=== PATIENT | female | born 1940 | race Caucasian/White ===

== ENCOUNTER → 2017-11-28 09:44 | Outpatient (CLI) | payer MEDICARE, SELFPAY ==
--- NOTE | 2017-11-28 09:47 | BI_ITS ---
MAMMOGRAPHY - BILATERAL SCREENING REASON FOR EXAM: Female, 77 years old. Routine annual screening examination. PERTINENT HISTORY: Non-contributory. TECHNIQUE: Digital bilateral breast lisbeth (3D mammographic acquisition) in the CC and MLO projections. 2-D mediolateral oblique (MLO) and craniocaudad (CC) views of both breasts were obtained. CAD: Full Field Digital Mammography with Computer Added Detection was performed. COMPARISON: Comparison is made with prior study dated November 26, 2016 and October 11, 2015. FINDINGS: Breast Composition: The breasts are heterogeneously dense, which may obscure small masses. There now is evidence of a amorphous microcalcifications in the inferior medial aspect of the right breast. These were not present on prior examination. A biopsy is recommended for further evaluation. No other significant abnormalities are identified. BI/SCREENING MAMM (CAD), BILAT IMPRESSION: New cluster microcalcification in the inferior medial aspect of the right breast as described. Biopsy recommended. ASSESSMENT CATEGORY: BIRADS Category 4: Suspicious - Biopsy Should Be Considered. A letter regarding these results will be sent to the patient by the facility within 30 days. Approximately 10% of breast cancers are not detected by mammography. A normal mammogram should not delay biopsy of a clinically suspicious abnormality. [id number] Electronically Signed: Dionicio Haddad MD at 12:23 EDT Tel [phone], Service support ,
== END ==
PROVIDERS: Visit Provider Obstetrics & Gynecology
DX: Z12.31 Encounter for screening mammogram for malignant neoplasm of breast (principal)
CPT/HCPCS: 77063; 77067

== ENCOUNTER → 2017-12-26 09:36 | Outpatient (CLI) | payer MEDICARE, SELFPAY ==
--- NOTE | 2017-12-26 | IMM_PTH ---
PATIENT: ALEXEI SIDDIQI LOC: [facility] U#:[id number] AGE/SX: 85/F ROOM: RE12/26/[address]: Dr. Alon Tobin MD : 1940 BED: DIS: SPEC #: [id number] RECD: 12/29/17 10:48 STATUS: VERONIKA REQ #: [id number] JORGE: 12/26/17 00:[address]: Alon Tobin DEPT: IMMUNOHISTOCHEMISTRY RECD BY: José Miguel Devi ENTERED: 12/29/17 10:50 SP TYPE: IMMUNO OTHR DR: No Primary Care Phys Tissues: Right breast, NOS Procedures: CALPONIN-1 (add) CK8 (add) E-CAD (add) HER2 DAE (add) KI-67 (add) P53 (add) OR (add) P40 (add) ER (initial) PHYSICIAN & INSTITUTION [place] [address] SPECIMEN INFORMATION: Tissue Source: Right breast Clinical Info: Right central depth/inferior/medial calcifications Specimen Number: [id number] #1 CPT code: 52090, 79165 x5, 79291 x3 METHODOLOGY: Deparaffinized sections of prefer/formalin-fixed tissue or PAP/DQ stained slides are incubated with monoclonal/polyclonal antibodies/oligonucleotide probes. Localization is made via biotin free immunoperoxidase method. Appropriate controls are performed and reacted as expected. Results on target cell population are indicated in the following table: RESULTS: ANTIBODY / CLONE RESULT Block 1 P53 (DO-7) positive, >50% Ki-67 (30-9) positive, low to focal moderate CK8 (15mcgrU93) positive Calponin-1 (RO154R) positive E-Cad (ECH-6) positive P40 (BC28) positive MORPHOMETRIC ANALYSIS ER (clone 6F11) positive, 60% (moderate to weak) OR (clone 16/1E2) positive, 18% (weak) Her-2Neu (clone CB11) positive, 3+ The prognostic test for HER2 is performed on formalin-fixed paraffin embedded tissue. A 3+ (positive) staining pattern is defined as intense, homogeneous, complete, circumferential membranous staining in >10% of contiguous tumor cells. A similar weak (2+) staining pattern is interpreted as equivocal. SHRUTHI follow-up testing is recommended for all equivocal cases. Positivity/negativity for ER/OR is reported if > or < 1% of the tumor cells are immuno- reactive, respectively. The ASCO/CAP criteria is used for scoring. Reference: Journal of Clinical Oncology, 2013; 31:5787-4136 & 2010; 16:5791-0146. Duration of fixation: 58Hrs; Sample Adequate: Yes. These assays have not been validated on decalcified tissues. Results should be interpreted with caution given the likelihood of false negativity on decalcified specimens. These tests were developed and their performance characteristics determined by [facility]. They may not have been cleared or approved by the U.S. Food and Drug Administration. The FDA has determined that such clearance or approval is not necessary. INTERPRETATION: Right breast, core biopsy: Ductal carcinoma in situ, grade 3/3. AM:alexis 12/29/17
--- NOTE | 2017-12-26 | BRBX_PTH ---
PATIENT: ALEXEI SIDDIQI LOC: [facility] U#:[id number] AGE/SX: 85/F ROOM: RE12/26/[address]: Dr. Alno Tobin MD : 1940 BED: DIS: SPEC #: [id number] RECD: 12/26/17 11:29 STATUS: VERONIKA LULU #: [id number] JORGE: 12/26/17 00:[address]: Alon Tobin DEPT: SURGICAL PATHOLOGY RECD BY: Romaine Burger ENTERED: 12/26/17 11:29 SP TYPE: BREAST BX OTHR DR: No Primary Care Phys Tissues: Right breast, NOS Procedures: Surgery Specimen Level IV HEADER OPERATION: Right breast stereotactic needle core biopsy PRE-OP DIAGNOSIS: Right central depth / inferior / medial calcifications TISSUE SUBMITTED: Right breast ISCHEMIC TIME: 2 minutes FIXATION TIME: 58 hours MICROSCOPIC DIAGNOSIS Right breast, stereotactic needle core biopsy: Ductal carcinoma in situ, 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 AM:alexis 12/29/17 COMMENT ER/SC/Fzm1ion studies are being performed on sections of tumor and the results from this study will be reported separately ([id number]). Case has been reviewed in consultation with Dr. Momin who concurs with the above diagnosis. EULALIA:BRONSON MICROSCOPIC DESCRIPTION Slides are reviewed. GROSS DESCRIPTION Received in fixative is one container labeled with the patient's name and designated right breast. The specimen consists of multiple elongated fragments of gregg-yellow fibroadipose tissue that in aggregate measure 5 x 3 x 0.6 cm. The entire specimen is submitted in four cassettes. / BRONSON:alexis 12/26/17 TC:0 CPT: 12039
--- NOTE | 2017-12-26 13:52 | PCM.OPRPT ---
Problem List (1) Mammographic microcalcification found on diagnostic imaging of breast Status: Acute Report of Operation Date of Procedure: 12/26/17 Pre-Operative Diagnosis: r92.0 mammographic microcalcifications of right breast Post-Operative Diagnosis: Same Surgery/Procedure Performed:: [id number] right stereotactic breast biopsy Type of Anesthesia:: Local Description of Procedure: Patient was brought into the mammography unit placed in the prone position on the fissure table. The right breast was brought down through the opening. A medial to lateral view was obtained. Identify the microcalcifications ?15? views were obtained. Targeted on the microcalcifications. I prepped the breast with Betadine. I injected 1% lidocaine plain. I made a skin cisco. The needle in the prefire position took 2 more stereo views. The area was adequately targeted. I injected more local. I fired the needle took 360? circumferential biopsies. I x-rayed my specimen. Microcalcifications were present. I backed the needle off 7 mm. A small Gelfoam titanium clip was placed. I remove the needle. X-rayed the breast. Small titanium clip was identified. Patient was taken out of the machine Steri-Strips applied sterile dressings were applied standard mammograms were obtained and the patient tolerated the procedure well. - Admit VTE Documentation VTE Present on Admission: No VTE Mechan Device Prophylaxis: None VTE Pharm Prophylaxis ordered?: No Reason prophylaxis not ordered:: Treatment Not Indicated
== END ==
PROVIDERS: Visit Provider Surgery
DX: C50.111 Malignant neoplasm of central portion of right female breast (principal); Z79.82 Long term (current) use of aspirin; Z79.899 Other long term (current) drug therapy
CPT/HCPCS: 19081; 88305; 88341; 88342; J7050; A4648

== ENCOUNTER 2018-01-08 08:06 | Day surgery (SDC) | payer MEDICARE, SELFPAY ==
--- NOTE | 2018-01-08 | BRBX_PTH ---
PATIENT: ALEXEI SIDDIQI LOC: [facility] [place] U#:[id number] AGE/SX: 77/F ROOM: RE01/08/[address]: Dr. Alon Tobin MD : 1940 BED: DIS: 01/08/2018 SPEC #: [id number] RECD: 01/08/18 10:24 STATUS: VERONIKA REEnzo #: [id number] JORGE: 01/08/18 00:[address]: Alon Tobin DEPT: SURGICAL PATHOLOGY RECD BY: Jane Cano ENTERED: 01/08/18 11:59 SP TYPE: BREAST BX OTHR DR: Dr. Bryanna Felix MD Tissues: A - Right breast, NOS B - Axillary lymph node, NOS Procedures: Frozen Section (charge) Surgery Specimen Level IV Frozen (no charge) HEADER OPERATION: Breast lumpectomy, sentinel node, NL PRE-OP DIAGNOSIS: Ductal carcinoma in situ right breast TISSUE SUBMITTED: A ? Lumpectomy right breast with wire, wire comes out anterior toward skin, single long ? medial, double long ? lateral, double short ? posterior, sent to radiology first at 1017, then pathology, B ? [place] lymph node right breast sent at 1021 FROZEN SECTION DIAGNOSIS B. [place] lymph nodes, right, biopsy: Two out of two lymph nodes, negative for metastatic carcinoma. SJ:alexis 01/08/18 MICROSCOPIC DIAGNOSIS A. Right breast, lumpectomy with needle localization: Invasive ductal carcinoma (two foci). Ductal carcinoma in situ. See cancer summary below. B. [place] lymph nodes, right, biopsy: Two out of two lymph nodes, negative for metastatic carcinoma. INVASIVE BREAST CANCER SUMMARY: (Including specimen A and B) Specimen ? partial breast Procedure ? excision with wire-guided localization Lymph node sampling ? sentinel lymph nodes Specimen integrity ? single intact specimen Specimen size ? 6 x 4 x 3 cm Specimen laterality - right Tumor site ? central/inferior/medial as per clinical information Tumor size - not specified Tumor focality ? two foci of invasive carcinoma Size of individual foci ? 0.5 x 0.4 cm, each Macroscopic and Microscopic extent of tumor: Skin ? invasive carcinoma does not invade into the dermis or epidermis. Nipple ? not applicable Skeletal muscle ? no skeletal muscle present Ductal carcinoma in situ (DCIS) ? present, adjacent to and away from the invasive carcinoma. Extensive intraductal component (EIC) ? present Estimated size (extent) of DCIS ? DCIS comprise about 60% of the total tumor volume Number of blocks with DCIS - 7 Number of blocks examined - 12 Architectural patterns ? comedo and solid Nuclear grade ? 3 (high) Necrosis ? present, central (expansive ?comedo? necrosis) Lobular carcinoma in situ (LCIS) ? not identified Histologic type of invasive carcinoma ? invasive ductal carcinoma (no special type) Histologic Grade (Calire grade): Glandular/tubular differentiation - score 2 Nuclear pleomorphism - score 2 Mitotic count ? score 1 Overall grade - 1 (score of 5) Margins - Margins uninvolved by invasive carcinoma. One of the invasive carcinoma focus is 1.7 cm away from the anterior margin (block A9). Second focus of invasive carcinoma is 1 cm away from the closest anterior margin (block A11). Margins are uninvolved by DCIS. The DCIS is 0.2 cm away from the closest inferior margin. Treatment effect: Response to presurgical (neoadjuvant) therapy - no known presurgical therapy. Lymph-Vascular invasion ? not identified Dermal lymph-vascular invasion - not identified Lymph nodes: Number of sentinel lymph nodes examined - 2 Total number of lymph nodes examined (sentinel and nonsentinel) - 2 Number of lymph nodes with macrometastases, micrometastases and isolated tumor cells - 0 Method of evaluation of sentinel lymph nodes - H & E, multiple levels and IHC. Distance metastasis ? not applicable Additional pathologic findings ? changes consistent with previous biopsy site. - Fibrocystic changes, adenosis and intraductal hyperplasia without atypia. Ancillary studies ? Immunohistochemistry, [id number]. ER ? positive (>95%, moderate) [place] ? positive (12%, weak) Her2 cindy ? positive (3+) Microcalcifications ? present in ductal carcinoma in situ Clinical history - Please make reference to previous specimen ([id number]) right breast, stereotactic needle core biopsy with diagnosis of ductal carcinoma in situ. PATHOLOGIC STAGE: pT1a(m) pN0(sn) Mx The above summary is in compliance with [employer] [place] [employer] (CAP) Cancer Protocols Checklist and [place] Joint Committee on Cancer (AJCC), Staging Manual, 8th Ed. SJ:alexis 01/20/18 COMMENT A. Immunohistochemistry ([id number]) supports the above diagnosis. The foci of invasive carcinoma are noted away from the previous biopsy site. B. The lymph nodes are negative for metastatic carcinoma on multiple H & E levels and immunohisto-chemical stains for cytokeratins ([id number]). Discussed with Dr. Barcenas 01/27/18 at 11:[address] Momin. Case has been reviewed in consultation with Dr. Larsen who concurs with the above diagnosis. IDC:AM MICROSCOPIC DESCRIPTION Slides are reviewed. GROSS DESCRIPTION A - Received fresh for intraoperative consultation labeled with the patient's name and designated lumpectomy right breast with wire. The specimen consists of a piece of fibroadipose tissue with needle localization measuring 6 x 4 x 3 cm. A piece of skin is noted anteriorly measuring 0.7 x 0.2 cm. The specimen is oriented as follows: single long ? medial, double long ? lateral, double short ? posterior , wire comes out anterior towards the skin. The specimen is also oriented by the surgeon in person. The specimen is inked as follows: anterior ? yellow, posterior ? black, superior ? blue, inferior ? green, medial ? red and lateral ? orange. Serial sections reveal the biopsy cavity measuring 1 x 1 x 0.7 cm and this biopsy cavity is 0.5 cm away from the closest anterior margin. This information is conveyed to the surgeon in person. Mixing Technician sections are submitted in 12 cassettes as follows: 1 ? perpendicular medial and lateral margins, 2 ? perpendicular superior, inferior and posterior margins, 3-8 ? biopsy cavity with surrounding tissue (cassette 3 contains the skin and closest anterior margin and cassette 4 also contains the closest anterior margin). The skin piece is bisected and entirely submitted. 9-12 ? jewelry sales representative sections from the other areas. Sections will be submitted after infusion cycle. B - Received fresh for frozen section diagnosis labeled with the patient's name is a specimen designated sentinel lymph node right breast. The specimen consists of a piece of adipose tissue containing contains measuring 2 x 1.2 x 1 cm. Two lymph nodes are identified measuring 0.3 cm and 1 cm in greatest dimension. The smaller lymph node is inked black. Both lymph nodes are submitted for frozen section diagnosis in one cassette. Sections will be submitted after infusion cycle. / SJ:rg 01/08/18 TC:0 CPT: 57935, 78439, 42460 x2
--- NOTE | 2018-01-08 | IMM_PTH ---
PATIENT: ALEXEI SIDDIQI LOC: [facility] [place] U#:[id number] AGE/SX: 77/F ROOM: RE01/08/[address]: Dr. Alon Tobin MD : 1940 BED: DIS: 01/08/2018 SPEC #: [id number] RECD: 01/12/18 10:14 STATUS: VERONIKA REQ #: [id number] JORGE: 01/08/18 00:[address]: Alon Tobin DEPT: IMMUNOHISTOCHEMISTRY RECD BY: Jane Cano ENTERED: 01/15/18 10:18 SP TYPE: IMMUNO OTHR DR: Dr. Bryanna Felix MD Tissues: A - Right breast, NOS Procedures: CALPONIN-1 (add) CK5-6 (add) CK7 (add) CK8 (add) E-CAD (add) HER2 DAE (add) KI-67 (add) P53 (add) FL (add) Pankeratin (initial) P40 (add) ER (initial) PHYSICIAN & [address] [address] SPECIMEN INFORMATION: Tissue Source: A ? Right breast lumpectomy, B ? Right sentinel lymph node Clinical Info: DCIS right breast Specimen Number: [id number] A2, A9, A11, B1 CPT code: 17230 x2, 00199 x13, 96572 x3 METHODOLOGY: Deparaffinized sections of prefer/formalin-fixed tissue or PAP/DQ stained slides are incubated with monoclonal/polyclonal antibodies/oligonucleotide probes. Localization is made via biotin free immunoperoxidase method. Appropriate controls are performed and reacted as expected. Results on target cell population are indicated in the following table: RESULTS: ANTIBODY / CLONE RESULT Block A2 E-Cad (ECH-6) positive P40 (BC28) positive Calponin-1 (LF672O) positive Block A9 E-Cad (ECH-6) positive P40 (BC28) negative Calponin-1 (CE060H) negative Block A11 E-Cad (ECH-6) positive CK8 (40hfufB57) positive CK5-6 (D5 & 1684) negative Ki-67 (30-9) positive, low P53 (DO-7) positive P40 (BC28) negative Calponin-1 (VO310M) negative MORPHOMETRIC ANALYSIS ER (clone 6F11) >95%, moderate FL (clone 16/1E2) 12%, weak Her-2Neu (clone CB11) 3+ Block B1 AE1-3 (AE1/AE3/PCK26) negative CK7 (OV-TL12/30) negative The prognostic test for HER2 is performed on formalin-fixed paraffin embedded tissue. A 3+ (positive) staining pattern is defined as intense, homogeneous, complete, circumferential membranous staining in >10% of contiguous tumor cells. A similar weak (2+) staining pattern is interpreted as equivocal. SHRUTHI follow-up testing is recommended for all equivocal cases. Positivity/negativity for ER/FL is reported if > or < 1% of the tumor cells are immuno- reactive, respectively. The ASCO/CAP criteria is used for scoring. Reference: Journal of Clinical Oncology, 2013; 31:5995-2315 & 2010; 16:8118-0972. Duration of fixation: __ Hrs; Sample Adequate: Yes. These assays have not been validated on decalcified tissues. Results should be interpreted with caution given the likelihood of false negativity on decalcified specimens. These tests were developed and their performance characteristics determined by [facility]. They may not have been cleared or approved by the U.S. Food and Drug Administration. The FDA has determined that such clearance or approval is not necessary. INTERPRETATION: A. Right breast, lumpectomy: Invasive ductal carcinoma (block A9 and A11). Ductal carcinoma in situ (blockA2) Positive for estrogen receptors (favorable prognostic indicator). Positive for progesterone receptors (favorable prognostic indicator). Positive for overexpression of OZI3ula. B. Right sentinel lymph node, biopsy: Two out of two lymph nodes, negative for metastatic carcinoma. SJ:alexis 01/20/18
--- NOTE | 2018-01-08 | BRBX_PTH ---
PATIENT: ALEXEI SIDDIQI LOC: [facility] [place] U#:[id number] AGE/SX: 77/F ROOM: RE01/08/[address]: Dr. Alon Tobin MD : 1940 BED: DIS: 01/08/2018 SPEC #: [id number] RECD: 01/08/18 10:24 STATUS: VERONIKA REEnzo #: [id number] JORGE: 01/08/18 00:[address]: Alon Tobin DEPT: SURGICAL PATHOLOGY RECD BY: Jane Cano ENTERED: 01/08/18 11:59 SP TYPE: BREAST BX OTHR DR: Dr. Bryanna Felix MD Tissues: A - Right breast, NOS B - Axillary lymph node, NOS Procedures: Frozen Section (charge) Surgery Specimen Level IV Frozen (no charge) HEADER OPERATION: Breast lumpectomy, sentinel node, NL PRE-OP DIAGNOSIS: Ductal carcinoma in situ right breast TISSUE SUBMITTED: A ? Lumpectomy right breast with wire, wire comes out anterior toward skin, single long ? medial, double long ? lateral, double short ? posterior, sent to radiology first at 1017, then pathology, B ? [place] lymph node right breast sent at 1021 FROZEN SECTION DIAGNOSIS B. [place] lymph nodes, right, biopsy: Two out of two lymph nodes, negative for metastatic carcinoma. SJ:alexis 01/08/18 MICROSCOPIC DIAGNOSIS A. Right breast, lumpectomy with needle localization: Invasive ductal carcinoma (two foci). Ductal carcinoma in situ. See cancer summary below. B. [place] lymph nodes, right, biopsy: Two out of two lymph nodes, negative for metastatic carcinoma. INVASIVE BREAST CANCER SUMMARY: (Including specimen A and B) Specimen ? partial breast Procedure ? excision with wire-guided localization Lymph node sampling ? sentinel lymph nodes Specimen integrity ? single intact specimen Specimen size ? 6 x 4 x 3 cm Specimen laterality - right Tumor site ? central/inferior/medial as per clinical information Tumor size - not specified Tumor focality ? two foci of invasive carcinoma Size of individual foci ? 0.5 x 4 cm each Macroscopic and Microscopic extent of tumor: Skin ? invasive carcinoma does not invade into the dermis or epidermis. Nipple ? not applicable Skeletal muscle ? no skeletal muscle present Ductal carcinoma in situ (DCIS) ? present Extensive intraductal component (EIC) ? present, adjacent to and away from the invasive carcinoma. Estimated size (extent) of DCIS ? DCIS comprise about 60% of the total tumor volume Number of blocks with DCIS - 7 Number of blocks examined - 12 Architectural patterns ? comedo and solid Nuclear grade ? 3 (high) Necrosis ? present, central (expansive ?comedo? necrosis) Lobular carcinoma in situ (LCIS) ? not identified Histologic type of invasive carcinoma ? invasive ductal carcinoma (no special type) Histologic Grade (Etna grade): Glandular/tubular differentiation - score 2 Nuclear pleomorphism - score 2 Mitotic count ? score 1 Overall grade - 1 (score of 5) Margins - Margins uninvolved by invasive carcinoma. One of the invasive carcinoma focus is 1.7 cm away from the anterior margin (block A9). Second focus of invasive carcinoma is 1 cm away from the closest anterior margin (block A11). Margins are uninvolved by DCIS. The DCIS is 0.2 cm away from the closest inferior margin. Treatment effect: Response to presurgical (neoadjuvant) therapy - no known presurgical therapy. Lymph-Vascular invasion ? not identified Dermal lymph-vascular invasion - not identified Lymph nodes: Number of sentinel lymph nodes examined - 2 Total number of lymph nodes examined (sentinel and nonsentinel) - 2 Number of lymph nodes with macrometastases, micrometastases and isolated tumor cells - 0 Method of evaluation of sentinel lymph nodes - H & E, multiple levels and IHC. Distance metastasis ? not applicable Additional pathologic findings ? changes consistent with previous biopsy site. - Fibrocystic changes, adenosis and intraductal hyperplasia without atypia. Ancillary studies ? Immunohistochemistry, [id number]. ER ? positive (>95%, moderate) [place] ? positive (12%, weak) Her2 cindy ? positive (3+) Microcalcifications ? present in ductal carcinoma in situ Clinical history - Please make reference to previous specimen ([id number]) right breast, stereotactic needle core biopsy with diagnosis of ductal carcinoma in situ. PATHOLOGIC STAGE: pT1a(m) pN0(sn) Mx The above summary is in compliance with [employer] [place] [employer] (CAP) Cancer Protocols Checklist and [place] [employer] Committee on Cancer (AJCC), Staging Manual, 8th Ed. SJ:alexis 01/20/18 COMMENT A. Immunohistochemistry ([id number]) supports the above diagnosis. The foci of invasive carcinoma are noted away from the previous biopsy site. B. The lymph nodes are negative for metastatic carcinoma on multiple H & E levels and immunohisto-chemical stains for cytokeratins ([id number]). Case has been reviewed in consultation with Dr. Larsen who concurs with the above diagnosis. IDC:AM MICROSCOPIC DESCRIPTION Slides are reviewed. GROSS DESCRIPTION A - Received fresh for intraoperative consultation labeled with the patient's name and designated lumpectomy right breast with wire. The specimen consists of a piece of fibroadipose tissue with needle localization measuring 6 x 4 x 3 cm. A piece of skin is noted anteriorly measuring 0.7 x 0.2 cm. The specimen is oriented as follows: single long ? medial, double long ? lateral, double short ? posterior , wire comes out anterior towards the skin. The specimen is also oriented by the surgeon in person. The specimen is inked as follows: anterior ? yellow, posterior ? black, superior ? blue, inferior ? green, medial ? red and lateral ? orange. Serial sections reveal the biopsy cavity measuring 1 x 1 x 0.7 cm and this biopsy cavity is 0.5 cm away from the closest anterior margin. This information is conveyed to the surgeon in person. Component Overhaul Operator sections are submitted in 12 cassettes as follows: 1 ? perpendicular medial and lateral margins, 2 ? perpendicular superior, inferior and posterior margins, 3-8 ? biopsy cavity with surrounding tissue (cassette 3 contains the skin and closest anterior margin and cassette 4 also contains the closest anterior margin). The skin piece is bisected and entirely submitted. 9-12 ? representative phlebotomy services sections from the other areas. Sections will be submitted after infusion cycle. B - Received fresh for frozen section diagnosis labeled with the patient's name is a specimen designated sentinel lymph node right breast. The specimen consists of a piece of adipose tissue containing contains measuring 2 x 1.2 x 1 cm. Two lymph nodes are identified measuring 0.3 cm and 1 cm in greatest dimension. The smaller lymph node is inked black. Both lymph nodes are submitted for frozen section diagnosis in one cassette. Sections will be submitted after infusion cycle. / SJ:rg 01/08/18 TC:0 CPT: 35259, 43648, 53804 x2
--- NOTE | 2018-01-08 07:40 | BI_ITS ---
SURGICAL BREAST SPECIMEN RADIOGRAPH CLINICAL: Document presence of mass in biopsy specimen. FINDINGS: Specimen shows presence of mass. Pathology is pending and an addendum to the biopsy report will be performed after the final pathologic diagnosis is rendered. Electronically Signed: Dionicio Haddad MD at 11:27 EDT Tel [phone], Service support , BI/Breast Biopsy Specimen
[2018-01-08 08:33] VITALS: BP 170/81; PULSE 78; RESP 16; TEMP 36.6; O2SAT 99; BMI 33.6
[2018-01-08] MEDS: Bupivacaine Mpf 0.5% 30 ML VIAL (09:01)
[2018-01-08] MEDS: Cefazolin 2 GM in 0.9% Normal Saline 100 ML IV (09:39)
--- NOTE | 2018-01-08 09:49 | OP.PCM_ITS ---
Problem List (1) Ductal carcinoma in situ (DCIS) of right breast Status: Acute Report of Operation Date of Procedure: 01/08/18 Pre-Operative Diagnosis: d05.11 ductal carcinoma in situ right breast Post-Operative Diagnosis: Same Surgery/Procedure Performed:: 1. Wire localization of ductal carcinoma in situ right breast. 2. Injection of 5 cc of Lymphazurin Blue. 3. right breast lumpectomy. 4. Right sentinel lymph node biopsy Type of Anesthesia:: General Anesthesiologist: Stoney Kovacs Description of Procedure: Patient was brought into the mammography unit. Placed in the prone position on the fissure table. The right breast was brought down through the opening. A medial to lateral view was obtained. Marking clip was identified. ?15? views were obtained. The breast was sterilely prepped and draped in usual fashion. I injected 1% lidocaine plain. I targeted on the clip in place the Kopan's wire approximately 1-1/2 cm past the clip. 2 more stereo views were obtained and the patient was transferred to the operating room. In the operating room under excellent general endotracheal intubation, I injected 5 cc of Lymphazurin blue around the nipple areolar complex. The right breast was sterilely prepped and draped. Elliptical incision was made around the previous biopsy site incision was carried medial and laterally I use electrocautery to get all the way around the lesion. I sent it to stereo and x- ray confirmed the wire was going into the lesion and the clip was in place. It was sent to pathology where inspection showed that I was clearly around the biopsy cavity and the closest margin was 5 mm anteriorly towards the skin. I made an incision in the axilla I dissected down going through the clavipectoral fascia and I identified a blue lymph node almost immediately. I removed it with the aid of the harmonic dissector sent to pathology for frozen section which did indeed confirm lymph node tissue and no obvious metastatic disease. Incisions were closed with deep dermal stitches of 3-0 Vicryl in a running 4-0 Monocryl. Dermabond was applied sterile dressings were applied Toñito wrap was applied and the patient tolerated the procedure well. - Admit VTE Documentation VTE Present on Admission: No VTE Mechan Device Prophylaxis: SCD's VTE Pharm Prophylaxis ordered?: No Reason prophylaxis not ordered:: Treatment Not Indicated
[2018-01-08] MEDS: Isosulfan Blue 1% 5 ML Vial (10:02)
[2018-01-08 10:57] VITALS: BP 165/87; PULSE 62; RESP 16; TEMP 36.3; O2SAT 100
[2018-01-08 11:15] VITALS: BP 165/87; BP 166/81; PULSE 59; PULSE 61; RESP 16; O2SAT 99
[2018-01-08 11:30] VITALS: BP 156/79; BP 165/87; PULSE 59; RESP 16; O2SAT 99
[2018-01-08 11:43] VITALS: BP 160/81; BP 165/87; PULSE 56; RESP 16; TEMP 36.4; O2SAT 98
--- NOTE | 2018-01-08 12:20 | DCINST_ITS ---
Discharge Diet: No Restrictions Discharge Activity: May Not Drive - for 2-3 days or while taking narcotic pain meds. May shower in (days): 1 Lifting Restrictions: 10 pounds for 1 week. Call your doctor if your incision/area has: Continuous Slow Oozing, Sudden Increased Bleeding Call your doctor if you observe: Fever of 101 or Higher Suture Line Care: Avoid Pulling/Pushing, Avoid Pinching/Bending Remove Dressing in (days):: 1 - Remove bulky dressing tomorrow. May leave any opsite dressing for 3-4 days. Keep dressing in place until your follow-up appointment. Additional Dressing/Incision Instructions:: Remove bulky dressing tomorrow. May leave any opsite dressing for 3-4 days. Keep dressing in place until your follow-up appointment. Allergies/Adverse Reactions: Allergies No Known Allergies Allergy (Verified 12/05/17 09:14) Medications to take at Discharge Aspirin [Aspirin EC] 81 mg PO DAILY 11/13/16 Cholecalciferol (VIT D3) [Vitamin D] 1,000 unit PO DAILY 11/13/16 Levothyroxine [Synthroid] 50 mcg PO DAILY 11/13/16 [place]-3 Fatty Acids [Fish Oil] 500 mg PO DAILY 11/13/16 Raloxifene HCl [Evista] 60 mg PO DAILY 11/13/16 celecoxib 200 mg capsule 200 mg PO QDAY 12/05/17 estradiol 0.5 mg tablet 0.5 mg PO QDAY 12/05/17 loratadine 10 mg tablet 10 mg PO PRN PRN 12/05/17 Docusate Sodium [Colace] 100 mg PO DAILY 01/02/18 Oxycodone HCl/Acetaminophen [Percocet 5/325] 1 - 2 tab PO Q4H PRN PRN 4 Days # 30 tab 01/08/18 The following prescriptions were given: Oxycodone HCl/Acetaminophen [Percocet 5/325] 1 - 2 tab PO Q4H PRN PRN 4 Days # 30 tab PRN Reason: Pain Primary Care Physician: Bryanna Felix MD [Primary Care Provider] -
[2018-01-08 12:25] VITALS: BP 165/87
== END 2018-01-08 12:59 | disposition home or self-care (01) ==
LOC: SDC 08:08 → AC 08:09
PROVIDERS: Family Provider Internal Medicine; PCP Internal Medicine; Visit Provider Surgery
PROC: (CPT 19301; principal; 2018-01-08 09:15)
DX: D05.11 Intraductal carcinoma in situ of right breast (principal); E07.9 Disorder of thyroid, unspecified; M19.90 Unspecified osteoarthritis, unspecified site; Z79.82 Long term (current) use of aspirin; Z79.899 Other long term (current) drug therapy; Z78.0 Asymptomatic menopausal state; Z90.710 Acquired absence of both cervix and uterus
CPT/HCPCS: 00400; 19301; 38525; 38900; 19281; 76098; 88305; 88331; 88341; 88342; J7120; Q9968

== ENCOUNTER → 2018-02-05 13:40 | Outpatient (CLI) | payer MEDICARE, SELFPAY ==
--- NOTE | 2018-02-05 14:03 | CT_ITS ---
STUDY: CT CHEST/THORAX WITH CONTRAST REASON FOR EXAM: Female, 78 years old. Right breast cancer. Postlumpectomy. RADIATION DOSAGE (If Supplied By Facility): CTDIvol = ( 14.14 ) mGy, DLP = ( 381.43 ) mGycm TECHNIQUE: Transaxial imaging was performed following intravenous administration of 100 ml of Isovue 300 contrast material. Multiplanar coronal and sagittal images were reformatted. Individualized dose optimization techniques were used for this CT. COMPARISON: None. FINDINGS: There is minor subsegmental crowding in the posterior medial right lower lobe. 3.5 mm calcified granuloma seen in the posterolateral left upper lobe at the mid chest. The lungs are otherwise clear and expanded. There is no demonstrated pleural abnormality. Normal heart and pericardium. There are calcified left hilar lymph nodes, as well as a few nodes with central calcifications in the aorticopulmonary window. There is a nonspecific 1.5 x 0.9 x 0.75 cm precarinal lymph node. Normal enhanced pulmonary arteries. Normal aorta arch and descending thoracic aorta. There are multi-level degenerative changes of the thoracic spine. Incidental note of grade 1 spondylolisthesis of T2 on T3, as well as well-corticated, focal invagination of the superior T3 vertebral endplate, consistent with a benign Schmorl's node. There is a moderately defined 1.7 x 1.6 x 1.6 cm side of lower density and mild trabecular thickening in the right posterior aspect of T11. There is a crescent-shaped 5.7 x 2.7 x 1.0 cm fluid density deep to a small site of cutaneous thickening and indentation of the medial aspect of the right breast, consistent with the prior lumpectomy site and small seroma. There are benign-appearing, fatty replaced lymph nodes in the bilateral axillae. There is osseous fusion across the sternomanubrial articulation. There is no demonstrated abnormality of the visualized upper abdomen. CT/Chest WITH Contrast IMPRESSION: 1. Post lumpectomy changes in the medial aspect of the right breast. 2. Findings of old left calcified granulomatous disease. 3. Extensive degenerative changes of the spine, including grade 1 spondylolisthesis of T2 on T3. 4. 1.7 cm low-density lesion suggesting hemangioma in the right posterior aspect of T11. Other pathology difficult to exclude, and one might consider correlation with bone scan or MRI. Electronically Signed: Shorty Swenson MD at 15:16 EDT , Service support ,
[2018-02-05 14:13] LABS: Absolute Lymphocyte Count 1.53 X10^3/ul (0.83-4.51); Absolute Neutrophil Count 4.4 X10^3/uL (2.0-7.7); Basophil# 0.02 X10^3/uL; Basophil% 0.3 % (0-1); Eosinophil# 0.24 X10^3/uL; Eosinophils% 3.7 % (0-5); Hematocrit 41.3 % (37-47); Hemoglobin 13.4 g/dl (12.0-15.0); Lymphocyte # 1.53 X10^3/ul (4.0); Lymphocyte % 23.3 % (19-41); Mean Corp Hgb Conc 32.4 g/gl (32-36); Mean Corpuscular Hgb 30.7 pg (27.0-32.0); Mean Corpuscular Volume 94.5 fL (81-99); Mean Platelet Vol. 10.1 fl (6.2-12.0); Monocyte# 0.43 X10^3/uL; Monocyte% 6.5 % (0-10); Neutrophil # 4.35 X10^3/uL (2.7-7.7); Neutrophil % 66.2 % (47-70); Platelet Count 255 K/mm3 (150-450); RBC Distribution Width CV 13.8 % (11.6-14.6); RBC Distribution Width SD 47.6 fl (35.1-43.9); Red Blood Count 4.37 M/mm3 (4.2-5.4); White Blood Count 6.6 K/mm3 (4.4-11.0)
[2018-02-05 14:15] LABS: POSITIVE COUNT NO; POSITIVE DIFFERENTIAL NO; POSITIVE MORPHOLOGY NO
[2018-02-05 14:21] LABS: AST(SGOT) 19 U/L (15-37); Alanine Aminotransfer ALT/SGPT 23 U/L (13-56); Albumin, Serum 3.5 g/dL (3.2-5.0); Alkaline Phosphatase 100 U/L (45-117); Anion Gap 7 (5-15); BUN 20 mg/dL (7-18); BUN/Creat Ratio 19.2 RATIO (10-20); Calcium,Total 9.8 mg/dL (8.5-10.1); Chloride 107 mmol/L (98-107); Creatinine, Serum 1.04 mg/dL (0.55-1.02); EST Glomerular Filtration Rate 55 mL/min (>60); Est Glom Filt Rate - Afr Amer 66 mL/min (>60); Globulin 3.6 g/dL (2.2-4.2); Glucose 89 mg/dL (74-106); Potassium 4.4 mmol/L (3.5-5.1); Protein, Total 7.1 g/dL (6.4-8.2); Sodium Level 140 mmol/L (136-145)
== END ==
PROVIDERS: Family Provider Internal Medicine; PCP Internal Medicine; Visit Provider Internal Medicine Medical Oncology
DX: D05.11 Intraductal carcinoma in situ of right breast (principal)
CPT/HCPCS: 36415; 71260; 80053; 85025; Q9967

== ENCOUNTER → 2018-06-25 13:54 | Outpatient (CLI) | payer MEDICARE, SELFPAY ==
[2018-02-19 10:10] VITALS: BMI 34.1
[2018-06-10 11:13] VITALS: BMI 34.0
--- NOTE | 2018-06-25 13:57 | US_ITS ---
STUDY: ULTRASOUND BREAST - RIGHT REASON FOR EXAM: Female, 78 years old. Six-month follow-up for right lumpectomy. TECHNIQUE: Axial and longitudinal images of the RIGHT breast were performed with a high resolution ultrasound transducer. COMPARISON: Comparison is made with prior mammogram done earlier today. FINDINGS: RIGHT Breast: At the lumpectomy site, there is a 2.3 cm x 3.1 cm x 0.3 cm fluid collection most likely postoperative in nature. Postsurgical changes are also seen at the lumpectomy site. US/Breast Limited Unilateral IMPRESSION: Findings in keeping with prior lumpectomy and small residual fluid collection. ASSESSMENT CATEGORY: BIRADS Category 2: Benign. A letter regarding these results will be sent to the patient by the facility within 30 days. Electronically Signed: Dionicio Haddad MD at 15:49 EST Tel [phone], Service support ,
--- NOTE | 2018-06-25 14:02 | BI_ITS ---
MAMMOGRAPHY - UNILATERAL DIAGNOSTIC: RIGHT BREAST REASON FOR EXAM: Female, 78 years old. 6 month follow-up examination for post right lumpectomy. PERTINENT HISTORY: Personal history of breast cancer. TECHNIQUE: Digital unilateral breast lisbeth (3D mammographic acquisition) in the CC and MLO projections. 2-D mediolateral oblique (MLO) and craniocaudad (CC) views of both breasts were obtained. CAD: Full Field Digital Mammography with Computer Added Detection was performed. COMPARISON: Comparison is made with prior study dated November 28, 2017 and November 26, 2016. FINDINGS: Breast Composition: The breasts are heterogeneously dense, which may obscure small masses. Since prior study, the patient underwent lumpectomy in the inferior medial portion of the right breast. The previously seen microcalcifications are not present at this time. There is evidence of postsurgical changes and deformity. No new abnormality is seen. No other significant abnormalities are identified. BI/DIAG MAMM W/CAD, UNILAT IMPRESSION: Status post right lumpectomy in the inferior medial portion of the right breast with resultant postoperative changes. No suspicious abnormality is seen. One year follow-up mammogram recommended. (A) ASSESSMENT CATEGORY: BIRADS Category 2: Benign. A letter regarding these results will be sent to the patient by the facility within 30 days. Approximately 10% of breast cancers are not detected by mammography. A normal mammogram should not delay biopsy of a clinically suspicious abnormality. Electronically Signed: Dionicio Haddad MD at 15:26 EST Tel [phone], Service support ,
== END ==
PROVIDERS: Family Provider Internal Medicine; PCP Internal Medicine; Referring Provider Surgery; Visit Provider Surgery
DX: C50.911 Malignant neoplasm of unspecified site of right female breast (principal)
CPT/HCPCS: 76642; 77061; 77065; G0279

== ENCOUNTER → 2018-10-01 14:34 | Outpatient (CLI) | payer MEDICARE, SELFPAY ==
[2018-09-23 11:51] VITALS: BMI 34.1
[2018-10-01 14:21] VITALS: BMI 34.0
--- NOTE | 2018-10-01 14:35 | RAD_ITS ---
STUDY: X-RAY - RIGHT KNEE REASON FOR EXAM: Female, 78 years old. Pain TECHNIQUE: Four view(s) of the knee were obtained. COMPARISON: None. FINDINGS: There is minimal spurring on the distal femur. There is minimal spurring on the tibial plateau. There is a small benign exostosis off the lateral distal femoral shaft. There is marked narrowing of the medial femorotibial compartment. Normal lateral femorotibial compartment. There is mild degenerative arthrosis of the patellofemoral articulation. There is moderate fullness above the patella. The soft tissue structures are unremarkable. RAD/Knee 4 or More Views IMPRESSION: There are marked degenerative changes in the medial compartment with subchondral cyst formation or osteochondral defects in the medial femoral condyle. There is a moderate joint effusion. Electronically Signed: Kelly Chavez MD at 10:54 EST , Service support ,
--- NOTE | 2018-10-01 14:35 | RAD_ITS ---
STUDY: X-RAY - LEFT KNEE REASON FOR EXAM: Female, 78 years old. Pain TECHNIQUE: Four view(s) of the knee were obtained. COMPARISON: None. FINDINGS: There is minimal spurring on the distal femur. There is minimal spurring on the tibial plateau. There is marked narrowing of the medial femorotibial compartment. There is mild narrowing of the lateral femorotibial compartment. There is chondrocalcinosis in the lateral femorotibial compartment. There is mild degenerative arthrosis of the patellofemoral articulation. There is no fullness above the patella. The soft tissue structures are unremarkable. RAD/Knee 4 or More Views IMPRESSION: There are marked degenerative changes in the medial compartment of the left knee. There are mild degenerative changes in the lateral compartment. No evidence of joint effusion. Electronically Signed: Kelly Chavez MD at 10:47 EST , Service support ,
== END ==
PROVIDERS: Family Provider Internal Medicine; PCP Internal Medicine; Referring Provider Orthopaedic Surgery; Visit Provider Orthopaedic Surgery
DX: M25.562 Pain in left knee (principal); M25.561 Pain in right knee
CPT/HCPCS: 73564

== ENCOUNTER 2018-12-01 05:33 | Observation (INO) | payer MEDICARE, SELFPAY ==
[2018-09-23 11:51] VITALS: BMI 34.1
[2018-10-23 12:01] VITALS: BMI 34.0
[2018-11-20 13:30] VITALS: BP 139/73; PULSE 73; RESP 17; TEMP 36.6; O2SAT 98; BMI 33.0
--- NOTE | 2018-11-20 13:50 | SDCEKG_ITS ---
Test Reason : Blood Pressure : / mmHG Vent. Rate : 060 BPM Atrial Rate : 060 BPM P-R Int : 178 ms QRS Dur : 072 ms QT Int : 392 ms P-R-T Axes : 016 003 018 degrees QTc Int : 392 ms Normal sinus rhythm Normal ECG Confirmed by KRISTINE WYLIE ([id number]), make up editor MICHEL MOORE ([id number]) on 11/23/2018 4:38:27 PM Referred By: Olvin Burciaga Confirmed By:KRISTINE WYLIE
[2018-11-20 15:34] LABS: Thyroid Stim Hormone (TSH) 1.47 uIU/mL (0.358-3.74)
[2018-12-01] VITALS (13 sets, daily range): BP systolic 124–180; BP diastolic 60–95; PULSE 63–83; RESP 16–18; TEMP 36.1–37; O2SAT 94–100; BMI 33.0
[2018-12-01] MEDS: oxyCODONE HCl Cr 10 MG Tablet PO (06:09)
[2018-12-01] MEDS: Celecoxib 200 MG Capsule PO (06:09)
[2018-12-01] MEDS: Acetaminophen 500 MG Tablet PO (06:09)
[2018-12-01] MEDS: Pregabalin 75 MG Capsule PO (06:10)
[2018-12-01] MEDS: Cefazolin 2 GM in 0.9% Normal Saline 100 ML IV ×3 (07:24→23:36)
[2018-12-01] MEDS: Morphine 4 MG/ML Syringe (08:51)
[2018-12-01] MEDS: Bupivacaine Mpf 0.5% 30 ML VIAL (08:51)
--- NOTE | 2018-12-01 09:48 | EKG12_ITS ---
Test Reason : POST OP Blood Pressure : / mmHG Vent. Rate : 070 BPM Atrial Rate : 070 BPM P-R Int : 196 ms QRS Dur : 078 ms QT Int : 394 ms P-R-T Axes : 046 011 021 degrees QTc Int : 425 ms Normal sinus rhythm Nonspecific T wave abnormality Abnormal ECG Confirmed by DILIP CARDOZA, MACHELLE ([id number]), food editor SHAYNA GOULD ([id number]) on 12/02/2018 1:43:59 PM Referred By: Olvin Burciaga Confirmed By:MACHELLE CHERRY MD
--- NOTE | 2018-12-01 09:56 | PCM.OPRPT ---
Report of Operation Date of Procedure: 12/01/18 Description of Surgical Findings:: Preoperative diagnosis: Right knee DJD Postoperative diagnosis: Same Procedure: Right total knee arthroplasty Implant: Wayland triathlon cemented right femoral component size 4, cemented tibial baseplate size 5, cemented asymmetric patella size 32, polyethylene X3 size 9 CS Anesthesia: Spinal with adductor canal block Tourniquet time: 75 minutes at 300 mmHg Complications: None Condition: Stable to PACU Estimated blood loss: 25 cc Indication for procedure: This is a 28-year-old female with long standing degenerative joint disease of the knee who has failed conservative treatment and wished to proceed with elective total knee arthroplasty. Risk benefits and alternatives were reviewed including; risk of bleeding, infection, nerve artery and tissue damage, continued pain, postoperative stiffness, venous thromboembolism, need for postoperative rehabilitation, mechanical feel to the knee, and expected postoperative course. Procedure: The patient was met in the preoperative holding area. The operative extremity was identified by both patient and physician and was marked. Patient was met by anesthesia. An adductor canal block was placed by anesthesia postoperatively. The patient was brought back to the operating room on a wheeled cart and transferred to the operating table in the supine position. Anesthesia was started. A well-padded tourniquet was placed on the operative extremity. The patient was prepped and draped in the usual sterile fashion. A timeout was called to ensure the proper patient procedure and extremity were being contemplated. An Esmarch was used to exsanguinate the extremity. The tourniquet was inflated. A 10 blade scalpel was used to make a midline incision down through the skin and subcutaneous tissue. Skin retractors placed. Bovie was used to perform meticulous hemostasis. full-thickness flaps were elevated medial and lateral along the joint capsule. A deep blade scalpel was used to perform a medial parapatellar arthrotomy. The knee was brought to full extension. A Bovie was used to release the soft tissues off the most proximal aspect of the medial tibial plateau a three-quarter inch curved osteotome was also used for this process. The infrapatellar fat pad was excised. The fat pad was excised partially anterior lateral portion the anterior medial was elevated from the femur. the patella was everted. The knee was brought into flexion. An intramedullary drill was used followed by flexible intramedullary guide eulogio. The distal femoral cutting block was placed and set to remove 8 mm of bone and 5 degrees of valgus. The block was secured with pins and an oscillating saw was used to complete the distal femoral cut. During this, and all bony cuts retractors were used to protect the collateral ligaments. At this point a femoral sizer was used to measure the AP dimension of the femur. The sizer block was pinned in 3 degrees of external rotation. The sizing block was removed and the appropriately sized 4-in-1 cutting block was placed over the previously made pinholes. It was checked with an ty wing and the block was secured with pins. An oscillating saw was used to complete the anterior cut followed by the posterior cut followed by the posterior chamfer cut followed by the anterior chamfer cut. The block was removed as well as the fragments. A ronguer was used to remove excess osteophytes. The medial and lateral meniscus were excised as well as the ACL. At this point a PCL retractor was placed and an intramedullary drill was passed down the tibial canal followed by a solid intramedullary guide eulogio. The tibial cutting block was attached and set to remove 9 mm of bone from the high side. This was checked with an external alignment drop eulogio for slope and tilt. It was pinned into place. An oscillating saw was used to complete the tibial plateau cut and the block was removed. A large osteotome was used to elevate the fragment and a Riley and a Bovie were used to free the fragment from the surrounding soft tissue. A rongeur was once again used to remove osteophytes a lamina radiological equipment specialist was used to evaluate the posterior capsular structures. A three-quarter inch curved osteotome was used to remove posterior osteophytes. A spacer block was inserted in both extension and flexion to ensure adequate spacing. Trials were inserted full extension and flexion were achieved in varus and valgus stability throughout range of motion were seen, balancing techniques were performed. At this point the attention was turned towards the patella. A caliper was used to ensure sufficient bone stock to remove 10 mm of bone. A reamer was used to perform this task. Lug holes were made for the appropriate-sized patella. The patella trial was inserted and there was good patellar tracking with knee range of motion. The tibial baseplate was allowed to float into rotation and was marked on the tibial plateau with a Bovie. Lug holes were made in the femur and trials were removed. The tibial baseplate was then sized and its preparation was completed with a fin punch. The knee was thoroughly irrigated. A posterior capsular injection was performed with 10 cc of Marcaine and 4 mg of morphine 30 cc of saline and 1 cc of epinephrine. The knee was brought into flexion and irrigated again. The tibial baseplate was cemented. Excess cement was removed with curettes. The polyethylene component was inserted. The femoral component was cemented. The knee was brought into full extension and placed on a bump. The patellar component was cemented. At this point a Betadine rinse was placed and thoroughly irrigated after a few minutes. This was followed by an Iricept rinse which was allowed to sit for 1 minute and then thoroughly irrigated. At this point all gloves were changed. The knee was thoroughly irrigated the joint capsule was closed with #1 Ethibond. Tourniquet was let down followed by 0 Vicryl and 2-0 Vicryl in the subcutaneous tissues. followed by clifford in the skin. Dressing was applied in the form of Xeroform 4 x 4 ABD web roll and an Toñito wrap from the foot to the groin. The patient tolerated the procedure well, all counts were correct patient was brought back to the PACU in stable condition. - Admit VTE Documentation VTE Mechan Device Prophylaxis: SCD's, Thigh High PAVAN Hose VTE Pharm Prophylaxis ordered?: Yes
--- NOTE | 2018-12-01 10:33 | RAD_ITS ---
STUDY: X-RAY - RIGHT KNEE REASON FOR EXAM: Female, 78 years old. Postop TECHNIQUE: 2 view(s) of the knee. COMPARISON: 10/01/2018 FINDINGS: Total knee arthroplasty with normal alignment. Anterior skin clifford. Postoperative air in the anterior soft tissues. No acute fractures or osteolytic lesions. Stable small osteochondroma projecting from the distal lateral femur. This measures 9 mm in length. RAD/Knee 1 or 2 Views IMPRESSION: Total knee arthroplasty with normal alignment. Stable small osteochondroma projecting from the distal lateral femur. Electronically Signed: Ananth Mcgovern MD at 10:55 EDT Tel , Service support ,
[2018-12-01 10:59] LABS: Calcium,Total 9.3 mg/dL (8.5-10.1)
[2018-12-01 11:06] LABS: Potassium 3.7 mmol/L (3.5-5.1)
[2018-12-01] MEDS: Ensure Clear 120 ML Liquid PO ×2 (12:50→16:28)
[2018-12-01] MEDS: Acetaminophen 500 MG Tablet 1000 MG PO ×2 (13:57→21:49)
[2018-12-01] MEDS: oxyCODONE 5 MG Tablet PO ×2 (13:58→23:36)
--- NOTE | 2018-12-01 14:10 | CASEMGMT ---
RN CM Assessment Presentation: RT TKR Intro role of CM and purpose of RN CM assessment to patient and her daughter Ines in room.. Demographics, PCP and Pharmacy verified. pt plans to return home on dc and stated she will have Home Health x 2 weeks, then outpt therapy @ [facility]. PCP: Specialists: Dr. Burciaga [facility] Insurance:[employer] Prescription Benefit: yes LNOK: , Wu Kimbrough Living Arrangements: Lives in one story home with her . Daughter Ines states she will be staying at home with her for now. Pt was independent prior to surgery. Family seems supportive and will be able to assist with care needs at home for pt. Transportation: drives. DME: Walker, cane, raised toilet seat. HHC: Home Health on dc with PT/OT Home Health. [facility] is able to staff pt. Pt and her daughter updated. Patient DC goals: Home DC PLAN: Home with [facility] for PT/OT- order placed. Anatoliy MACEDO RN ACM
[2018-12-01] MEDS: Ondansetron 4 MG/2 ML Vial IV (18:12)
[2018-12-01] MEDS: 0.9% NaCl Peripheral Flush Adult/Peds IV (18:12)
[2018-12-01] MEDS: Senna/Docusate Sodium 1 Tablet 2 TABLET PO (21:49)
[2018-12-01] MEDS: APIXABAN 2.5 MG TABLET PO (21:49)
[2018-12-02 04:27] VITALS: BP 156/71; PULSE 69; RESP 16; TEMP 36.8; O2SAT 94
[2018-12-02 05:41] LABS: Hematocrit 34.1 % (37-47); Hemoglobin 11.3 g/dl (12.0-15.0); Mean Corp Hgb Conc 33.1 g/gl (32-36); Mean Corpuscular Hgb 31.7 pg (27.0-32.0); Mean Corpuscular Volume 95.8 fL (81-99); Mean Platelet Vol. 9.8 fl (6.2-12.0); Platelet Count 188 K/mm3 (150-450); RBC Distribution Width CV 14.2 % (11.6-14.6); Red Blood Count 3.56 M/mm3 (4.2-5.4); White Blood Count 5.7 K/mm3 (4.4-11.0)
[2018-12-02 05:47] LABS: Scan Indicated on CBC? Y/N NO
[2018-12-02 05:53] LABS: Anion Gap 3 (5-15); BUN 15 mg/dL (7-18); BUN/Creat Ratio 15.7 RATIO (10-20); Chloride 110 mmol/L (98-107); Creatinine, Serum 0.96 mg/dL (0.55-1.02); EST Glomerular Filtration Rate 60 mL/min (>60); Est Glom Filt Rate - Afr Amer 73 mL/min (>60); Estimated Creatinine Clearance 35.25 ml/min; Glucose 93 mg/dL (74-106); Potassium 4.5 mmol/L (3.5-5.1); Sodium Level 143 mmol/L (136-145)
[2018-12-02] MEDS: Acetaminophen 500 MG Tablet 1000 MG PO ×3 (06:12→20:38)
[2018-12-02] MEDS: oxyCODONE 5 MG Tablet PO ×3 (06:12→20:39)
--- NOTE | 2018-12-02 07:36 | PCM.PN.ORT ---
Subjective: Pain controlled doing well nausea last night resolved at this morning no chest pain shortness of breath - Physical Exam General: Alert, Oriented x3, Cooperative, No apparent distress Extremities: - - Dressing clean dry and intact incision well approximated no sign of infection neurovascular intact EHL tibialis anterior gastrocsoleus intact sensation palpable pedal pulses Vital Signs Temp Pulse Resp BP Pulse Ox 98.3 F 69 16 156/71 H 94 12/02/18 04:27 12/02/18 04:27 12/02/18 04:27 12/02/18 04:27 12/02/18 04:27 Oxygen Delivery Method Room Air Weight: 171 lb 15.369 oz Body Mass Index (BMI) 33.0 Intake and Output for Last 24 Hours 11/30/18 12/01/18 12/02/18 23:59 23:59 23:59 Intake Total 4436 / 4436 759 / 759 Balance 4436 / 4436 759 / 759 Laboratory Tests Past 24 Hrs 12/01/18 12/01/18 12/02/18 10:33 10:33 05:20 WBC 5.7 RBC 3.56 L Hgb 11.3 L Hct 34.1 L MCV 95.8 MCH 31.7 MCHC 33.1 RDW 14.2 RDW Differential 50.0 H Plt Count 188 MPV 9.8 Sodium Potassium 3.7 Chloride Carbon Dioxide Anion Gap BUN Creatinine Estim Creat Clear Calc Est GFR (MDRD) Af Amer Est GFR (MDRD) Non-Af BUN/Creatinine Ratio Glucose Calcium 9.3 Magnesium 2.0 Troponin I < 0.015 12/02/18 05:20 WBC RBC Hgb Hct MCV MCH MCHC RDW RDW Differential Plt Count MPV Sodium 143 Potassium 4.5 Chloride 110 H Carbon Dioxide 30.0 Anion Gap 3 L BUN 15 Creatinine 0.96 Estim Creat Clear Calc 35.25 Est GFR (MDRD) Af Amer 73 Est GFR (MDRD) Non-Af 60 BUN/Creatinine Ratio 15.7 Glucose 93 Calcium 9.0 Magnesium Troponin I Medical Necessity - Tobacco Use Smoking Status: Never smoker Assessment/Plan All Active Problems (Last Reviewed 07/14/18 @ 12:43 by Alon Tobin MD) Environmental allergies (Acute) Mammographic microcalcification found on diagnostic imaging of breast (Acute) Ductal carcinoma in situ (DCIS) of right breast (Acute) Postop day #1 right total knee arthroplasty Eliquis 2.5 mg twice daily SCDs PAVAN hose Dressing change daily may begin shower postop day #3 Clean incision with Betadine daily for now Change ABD pad daily Physical therapy weightbearing as tolerated encourage full knee range of motion DC planning home health care tomorrow
[2018-12-02 09:06] VITALS: BP 119/65; PULSE 76; RESP 18; TEMP 37.7; O2SAT 96
[2018-12-02] MEDS: APIXABAN 2.5 MG TABLET PO ×2 (09:37→20:40)
[2018-12-02] MEDS: Senna/Docusate Sodium 1 Tablet 2 TABLET PO ×2 (09:37→20:39)
[2018-12-02] MEDS: Ensure Clear 120 ML Liquid PO ×3 (09:38→17:26)
[2018-12-02 13:09] VITALS: BP 121/59; PULSE 66; RESP 18; O2SAT 94
[2018-12-02 15:00] VITALS: BP 155/70; PULSE 74; RESP 18; TEMP 37.7; O2SAT 97
--- NOTE | 2018-12-02 15:25 | CASEMGMT ---
JENNIFER HEDRICK completed GROVER form with patient. Patient voiced understanding and had no questions at this time. Patient signed form and original filed in chart. Copy of GROVER provided to patient.
[2018-12-02 20:30] VITALS: BP 166/79; PULSE 93; RESP 16; TEMP 37.8; O2SAT 96
[2018-12-02] MEDS: 0.9% NaCl Peripheral Flush Adult/Peds IV (20:40)
[2018-12-03 05:00] VITALS: BP 160/76; PULSE 84; RESP 16; TEMP 37.2; O2SAT 95
[2018-12-03] MEDS: oxyCODONE 5 MG Tablet PO ×2 (05:10→11:03)
[2018-12-03] MEDS: Acetaminophen 500 MG Tablet 1000 MG PO (05:11)
[2018-12-03 05:52] LABS: Hematocrit 36.3 % (37-47); Hemoglobin 11.8 g/dl (12.0-15.0); Mean Corp Hgb Conc 32.5 g/gl (32-36); Mean Corpuscular Hgb 31.4 pg (27.0-32.0); Mean Corpuscular Volume 96.5 fL (81-99); Mean Platelet Vol. 10.8 fl (6.2-12.0); Platelet Count 192 K/mm3 (150-450); RBC Distribution Width CV 14.2 % (11.6-14.6); RBC Distribution Width SD 48.3 fl (35.1-43.9); Red Blood Count 3.76 M/mm3 (4.2-5.4)
[2018-12-03 05:59] LABS: Scan Indicated on CBC? Y/N NO
[2018-12-03] MEDS: Senna/Docusate Sodium 1 Tablet 2 TABLET PO (07:56)
[2018-12-03] MEDS: APIXABAN 2.5 MG TABLET PO (07:57)
[2018-12-03] MEDS: Ensure Clear 120 ML Liquid PO ×2 (07:59→11:06)
[2018-12-03 08:03] VITALS: BP 147/103; PULSE 82; RESP 16; TEMP 36.9; O2SAT 99
--- NOTE | 2018-12-03 09:06 | PCM.DC.ORTHO ---
Discharge Diet: No Restrictions Discharge Activity: Return to Normal Activity May shower in (days): 1 - day Weight Bearing Status: Weight bearing as tolerated Additional Activity Instructions:: Encourage full knee range of motion. Flex and extend the knee completely 1 time every time you get up and down. May shower postop day #3. Keep incision clean if not showering daily then clean incision daily with warm water and antibacterial soap. Do not submerge completely underwater until clifford come out. Call if any questions or concerns. Call your doctor if you observe: Fever of 101 or Higher, Chest pain, Calf discomfort Allergies/Adverse Reactions: Allergies No Known Allergies Allergy (Verified 11/23/18 10:25) Medications to take at Discharge Cholecalciferol (VIT D3) [Vitamin D3] 1,000 unit PO DAILY 11/13/16 Levothyroxine [Synthroid] 50 mcg PO DAILY 11/13/16 Docusate Sodium [Colace] 100 mg PO DAILY 01/02/18 Tamoxifen Citrate [Nolvadex] 20 mg PO DAILY 11/20/18 mupirocin 2 % topical ointment 1 applic TOPICAL BID #15 g 11/23/18 Acetaminophen [Tylenol] 1,000 mg PO Q8 tablet 12/03/18 Apixaban [Eliquis] 2.5 mg PO BID 14 Days #28 tablet 12/03/18 Oxycodone [Oxyir] 5 - 10 mg PO Q4H PRN PRN 7 Days #60 tablet 12/03/18 Primary Care Physician: Bryanna Felix MD [Primary Care Provider] - Test Results: Test results from this visit will be discussed in further detail at your follow-up appointment, if applicable. Please Follow Up With: Olvin Burciaga DO - 2 weeks
--- NOTE | 2018-12-03 09:12 | DCINST_ITS ---
Discharge Diet: No Restrictions Discharge Activity: Return to Normal Activity May shower in (days): 1 - day Weight Bearing Status: Weight bearing as tolerated Additional Activity Instructions:: Encourage full knee range of motion. Flex and extend the knee completely 1 time every time you get up and down. May shower postop day #3. Keep incision clean if not showering daily then clean incision daily with warm water and antibacterial soap. Do not submerge c ompletely underwater until clifford come out. Call if any questions or concerns. Call your doctor if you observe: Fever of 101 or Higher, Chest pain, Calf discomfort Allergies/Adverse Reactions: Allergies No Known Allergies Allergy (Verified 11/23/18 10:25) Medications to take at Discharge Cholecalciferol (VIT D3) [Vitamin D3] 1,000 unit PO DAILY 11/13/16 Levothyroxine [Synthroid] 50 mcg PO DAILY 11/13/16 Docusate Sodium [Colace] 100 mg PO DAILY 01/02/18 Tamoxifen Citrate [Nolvadex] 20 mg PO DAILY 11/20/18 mupirocin 2 % topical ointment 1 applic TOPICAL BID #15 g 11/23/18 Acetaminophen [Tylenol] 1,000 mg PO Q8 tablet 12/03/18 Apixaban [Eliquis] 2.5 mg PO BID 14 Days #28 tablet 12/03/18 Oxycodone [Oxyir] 5 - 10 mg PO Q4H PRN PRN 7 Days #60 tablet 12/03/18 Primary Care Physician: Bryanna Felix MD [Primary Care Provider] - Test Results: Test results from this visit will be discussed in further detail at your follow- up appointment, if applicable. Please Follow Up With: Olvin Burciaga DO - 2 weeks
--- NOTE | 2018-12-03 09:14 | PCM.DC.SUM ---
Discharge Date and Diagnosis Date of Admission: 12/01/18 Date of Discharge: 12/03/18 - Secondary Discharge Diagnosis Chronic Problems (Last Reviewed 07/14/18 @ 12:43 by Alon Tobin MD) Breast cancer, right (Chronic) Hospital Course and Treatment Summary of Care Provided: The patient is a 78 year old F who has long history of degenerative joint disease to the knee who has failed conservative treatment and wished to undergo elective total knee arthroplasty. Patient underwent the A4 mentioned procedure on the admission date without any intraoperative complications. She did receive pre-and postoperative antibiotics which were discontinued within 23 hours postoperatively. She did receive spinal anesthesia as well as an adductor canal block postoperatively her pain was controlled with IV and transition to p.o. pain medication she will be discharged home with oxycodone and will continue Tylenol as well. She had minimal intraoperative blood loss and tranexamic acid was administered there was no need for postoperative blood transfusion her vital signs remained stable. She was started on both mechanical and chemical DVT per prophylaxis postoperatively in the form of SCDs PAVAN hose and Eliquis 2.5 mg twice daily for which she will continue for 2 additional weeks post hospital discharge. Her dressing was changed on postop day #2 without any concerning signs she will begin showering on postop day #3 and will change her dressing daily at this point. She will follow-up in the office in 2 weeks. No intrahospital complications. [] Subjective: doing well no complaints. Objective: Incision well approximated no sign of infection. Compartments soft neurovascular intact - Physical Exam Vital Signs Temp Pulse Resp BP Pulse Ox 98.5 F 82 16 147/103 H 99 12/03/18 08:03 12/03/18 08:03 12/03/18 08:03 12/03/18 08:03 12/03/18 08:03 Oxygen Delivery Method Room Air Weight: 171 lb 15.369 oz Body Mass Index (BMI) 33.0 Intake and Output for Last 24 Hours 12/01/18 12/02/18 12/03/18 23:59 23:59 23:59 Intake Total 4436 / 4436 759 / 759 700 / 700 Balance 4436 / 4436 759 / 759 700 / 700 Laboratory Tests Past 24 Hrs 12/03/18 05:18 WBC 8.0 RBC 3.76 L Hgb 11.8 L Hct 36.3 L MCV 96.5 MCH 31.4 MCHC 32.5 RDW 14.2 RDW Differential 48.3 H Plt Count 192 MPV 10.8 Discharge Diet: No Restrictions Discharge Activity: Return to Normal Activity May shower in (days): 1 - day Weight Bearing Status: Weight bearing as tolerated Additional Activity Instructions:: Encourage full knee range of motion. Flex and extend the knee completely 1 time every time you get up and down. May shower postop day #3. Keep incision clean if not showering daily then clean incision daily with warm water and antibacterial soap. Do not submerge completely underwater until clifford come out. Call if any questions or concerns. Call your doctor if you observe: Fever of 101 or Higher, Chest pain, Calf discomfort Home Medications: Medications to take at Discharge Cholecalciferol (VIT D3) [Vitamin D3] 1,000 unit PO DAILY 11/13/16 Levothyroxine [Synthroid] 50 mcg PO DAILY 11/13/16 Docusate Sodium [Colace] 100 mg PO DAILY 01/02/18 Tamoxifen Citrate [Nolvadex] 20 mg PO DAILY 11/20/18 mupirocin 2 % topical ointment 1 applic TOPICAL BID #15 g 11/23/18 Acetaminophen [Tylenol] 1,000 mg PO Q8 tablet 12/03/18 Apixaban [Eliquis] 2.5 mg PO BID 14 Days #28 tablet 12/03/18 Oxycodone [Oxyir] 5 - 10 mg PO Q4H PRN PRN 7 Days #60 tablet 12/03/18 Following Prescrptions Were Given to Patient: Oxycodone [Oxyir] 5 - 10 mg PO Q4H PRN PRN 7 Days #60 tablet PRN Reason: Mod-Severe Pain (4-1010) Apixaban [Eliquis] 2.5 mg PO BID 14 Days #28 tablet Primary Care Physician: Bryanna Felix MD [Primary Care Provider] - Please Follow Up With: Olvin Burciaga DO - 2 weeks Medical Necessity - Tobacco Use Smoking Status: Never smoker Meaningful Use Info Meaningful Use Diagnoses (Choose all that apply): None applicable
--- NOTE | 2018-12-03 10:03 | CASEMGMT ---
JENNIFER HEDRICK received scripts for FWW and tub bench. JENNIFER HEDRICK called [facility] and sent referral. Per Cassie at [facility], Tub bench is not covered by [facility]. JENNIFER HEDRICK requested FWW be delivered to [facility] prior to patient's discharge. JENNIFER HEDRICK updated patient regarding DME and that tub bench is not covered by insurance but would provide script for Tub bench and can take to drugstore to fill and attempt to bill through insurance. Patient voiced understanding. Plan is for discharge home today with [facility] after walker is delivered.
--- NOTE | 2018-12-03 13:21 | PCA ---
therapy working with pt
== END 2018-12-03 13:45 | disposition home health service (06) ==
PROVIDERS: Anesthesiology; Admitting Provider Orthopaedic Surgery; Family Provider Internal Medicine; PCP Internal Medicine; Referring Provider Orthopaedic Surgery; Visit Provider Orthopaedic Surgery
PROC: (CPT 27447; principal; 2018-12-01 07:05)
DX: M17.11 Unilateral primary osteoarthritis, right knee (principal); Z79.899 Other long term (current) drug therapy; Z79.82 Long term (current) use of aspirin; E03.9 Hypothyroidism, unspecified; M19.90 Unspecified osteoarthritis, unspecified site; Z85.3 Personal history of malignant neoplasm of breast
CPT/HCPCS: 01402; 27447; 64447; 36415; 73560; 80048; 82310; 83735; 84132; 84443; 84484; 85027; 87077; 87081; 93005; 96365; 96375; 96376; 97110; 97116; 97162; 97166; 97530; 99218; C1776; J7120; A4216; G0378; G0379; J0702; J2405; J3490

== ENCOUNTER → 2018-12-22 10:33 | Outpatient (CLI) | payer MEDICARE, SELFPAY ==
[2018-09-23 11:51] VITALS: BMI 34.1
[2018-10-23 12:01] VITALS: BMI 34.0
[2018-12-14 10:40] VITALS: BMI 33.0
--- NOTE | 2018-12-22 10:35 | BI_ITS ---
MAMMOGRAPHY - BILATERAL SCREENING REASON FOR EXAM: Female, 78 years old. Routine annual screening examination. PERTINENT HISTORY: Personal history of breast cancer. TECHNIQUE: Digital bilateral breast lisbeth (3D mammographic acquisition) in the CC and MLO projections. 2-D mediolateral oblique (MLO) and craniocaudad (CC) views of both breasts were obtained. CAD: Full Field Digital Mammography with Computer Added Detection was performed. COMPARISON: Comparison is made with prior examination dated November 28, 2017 and June 25, 2018. FINDINGS: Breast Composition: The breasts are heterogeneously dense, which may obscure small masses. The patient is status post lumpectomy on the inferior medial aspect of the right breast for calcifications. There is evidence of postoperative changes with scarring and skin thickening. There is a 1.1 cm x 1.1 cm well-defined nodular density in the central slightly lateral aspect of the left breast. Correlation with ultrasound is recommended. No other significant abnormalities are identified. BI/SCREENING MAMM (CAD), BILAT IMPRESSION: Status post right lumpectomy with a resultant postoperative changes. 1.1 cm x 1.1 cm well-defined nodule in the central slightly lateral aspect of the left breast as described. Correlation with ultrasound is recommended. ASSESSMENT CATEGORY: BIRADS Category 0: Incomplete. Need additional imaging evaluation. A letter regarding these results will be sent to the patient by the facility within 30 days. Approximately 10% of breast cancers are not detected by mammography. A normal mammogram should not delay biopsy of a clinically suspicious abnormality. [id number] Electronically Signed: Dionicio Haddad, at 12:38 EDT , Service support ,
== END ==
PROVIDERS: Family Provider Internal Medicine; PCP Internal Medicine; Referring Provider Student in an Organized Health Care Education/Training Program; Visit Provider Student in an Organized Health Care Education/Training Program
DX: Z12.31 Encounter for screening mammogram for malignant neoplasm of breast (principal); Z85.3 Personal history of malignant neoplasm of breast
CPT/HCPCS: 77063; 77067

== ENCOUNTER → 2018-12-24 10:50 | Outpatient (CLI) | payer MEDICARE, SELFPAY ==
[2018-09-23 11:51] VITALS: BMI 34.1
[2018-12-14 10:40] VITALS: BMI 33.0
--- NOTE | 2018-12-24 10:51 | US_ITS ---
STUDY: ULTRASOUND BREAST - LEFT REASON FOR EXAM: Female, 78 years old. Abnormal screening mammogram. TECHNIQUE: Axial and longitudinal images of the LEFT breast were performed with a high resolution ultrasound transducer. COMPARISON: Comparison is made with prior mammogram dated December 22, 2018. FINDINGS: LEFT Breast: The entire breast was examined by ultrasound. There is homogeneous fibroglandular tissue. No solid or cystic mass lesion is seen. Additional mammographic views will be obtained. US/Breast Limited Unilateral IMPRESSION: Unremarkable ultrasound of the left breast. Additional mammographic views will be obtained. ASSESSMENT CATEGORY: BIRADS Category 0: Incomplete. Need additional imaging evaluation. A letter regarding these results will be sent to the patient by the facility within 30 days. Electronically Signed: Dionicio Haddad, at 13:42 EDT , Service support ,
--- NOTE | 2018-12-24 11:13 | BI_ITS ---
MAMMOGRAPHY - UNILATERAL DIAGNOSTIC: LEFT BREAST REASON FOR EXAM: Female, 78 years old. Additional views. PERTINENT HISTORY: Possible nodular density seen on prior mammogram dated December 22, 2018. TECHNIQUE: Compression spot views in the 90 degree lateral and craniocaudad views were obtained. CAD: Full Field Digital Mammography with Computer Added Detection was performed. COMPARISON: Comparison is made with prior mammogram dated December 22, 2018 and prior sonogram of the left breast dated December 24, 2018. FINDINGS: Breast Composition: The breasts are heterogeneously dense, which may obscure small masses. The previously possible nodular density is not seen on this examination. This most likely represented superimposition of breast tissue. No other significant abnormalities are identified. BI/DIAG MAMM W/CAD, UNILAT IMPRESSION: Stable unilateral diagnostic mammogram. One year follow-up mammogram recommended. (A) ASSESSMENT CATEGORY: BIRADS Category 2: Benign. A letter regarding these results will be sent to the patient by the facility within 30 days. Approximately 10% of breast cancers are not detected by mammography. A normal mammogram should not delay biopsy of a clinically suspicious abnormality. Electronically Signed: Dionicio Haddad, at 8:47 EDT , Service support ,
== END ==
PROVIDERS: Family Provider Internal Medicine; PCP Internal Medicine; Referring Provider Student in an Organized Health Care Education/Training Program; Visit Provider Student in an Organized Health Care Education/Training Program
DX: R92.8 Other abnormal and inconclusive findings on diagnostic imaging of breast (principal)
CPT/HCPCS: 76642; 77065

== ENCOUNTER → 2019-12-03 10:27 | Outpatient (CLI) | payer MEDICARE, SELFPAY ==
[2019-09-27 11:02] VITALS: BMI 34.1
[2019-12-03 08:05] VITALS: BMI 33.1
--- NOTE | 2019-12-03 10:28 | RAD_ITS ---
STUDY: X-RAY - RIGHT KNEE REASON FOR EXAM: Female, 79 years old. 1 YR POST OP, NO COMPLAINTS TECHNIQUE: 4 view(s) of the knee. COMPARISON: Comparison is made with prior study dated December 01, 2018. FINDINGS: The patient is status post total knee replacement. There is good alignment. Mild residual soft tissue swelling. RAD/Knee 4 or More Views IMPRESSION: Status post total knee replacement. There is good alignment. Mild soft tissue swelling. Electronically Signed: Dionicio Haddad, at 11:37 EDT , Service support ,
== END ==
PROVIDERS: PCP Internal Medicine; Referring Provider Orthopaedic Surgery; Visit Provider Orthopaedic Surgery
DX: Z96.651 Presence of right artificial knee joint (principal)
CPT/HCPCS: 73564

== ENCOUNTER → 2019-12-29 13:28 | Outpatient (CLI) | payer MEDICARE, SELFPAY ==
[2019-09-27 11:02] VITALS: BMI 34.1
[2019-12-03 08:05] VITALS: BMI 33.1
--- NOTE | 2019-12-29 13:30 | BI_ITS ---
MAMMOGRAPHY - BILATERAL SCREENING REASON FOR EXAM: Female, 79 years old. Routine annual screening examination. PERTINENT HISTORY: RT LUMPECTOMY 12/21/2017 WITH RAD AND TOMOXIFEN TX LT SKIN TAG S TECHNIQUE: Digital bilateral breast maryjane (3D mammographic acquisition) in the CC and MLO projections. 2-D mediolateral oblique (MLO) and craniocaudad (CC) views of both breasts were obtained. CAD: Full Field Digital Mammography with Computer Added Detection was performed. COMPARISON: 12/22/2018 and 12/24/2018 FINDINGS: Breast Composition: There is a cluster of microcalcification is noted in the medial aspect of the left breast for which further evaluation by magnification views and ultrasound would be recommended. No other significant abnormalities are identified. BI/SCREEN MAMM (CAD) W/MARYJANE BILAT IMPRESSION: There is a cluster of microcalcification is noted in the medial aspect of the left breast for which further evaluation by magnification views and ultrasound would be recommended. ASSESSMENT CATEGORY: BIRADS Category 0: Incomplete. Need additional imaging evaluation. A letter regarding these results will be sent to the patient by the facility within 30 days. Approximately 10% of breast cancers are not detected by mammography. A normal mammogram should not delay biopsy of a clinically suspicious abnormality. [id number] Electronically Signed: Yadi Chance, at 15:48 EDT Tel , Service support ,
== END ==
PROVIDERS: PCP Internal Medicine; Referring Provider Internal Medicine Medical Oncology; Visit Provider Internal Medicine Medical Oncology
DX: Z12.31 Encounter for screening mammogram for malignant neoplasm of breast (principal); Z85.3 Personal history of malignant neoplasm of breast
CPT/HCPCS: 77063; 77067

== ENCOUNTER → 2020-01-05 15:08 | Outpatient (CLI) | payer MEDICARE, SELFPAY ==
[2019-09-27 11:02] VITALS: BMI 34.1
[2020-01-05 14:15] VITALS: BMI 32.4
--- NOTE | 2020-01-05 15:10 | BI_ITS ---
MAMMOGRAPHY - UNILATERAL DIAGNOSTIC: LEFT BREAST REASON FOR EXAM: Female, 79 years old. A normal screening mammogram. Additional imaging for calcifications. PERTINENT HISTORY: Personal history of breast cancer. Prior right lumpectomy with radiation treatment. TECHNIQUE: Digital unilateral breast lisbeth (3D mammographic acquisition) in the CC and MLO projections. 2-D mediolateral oblique (MLO) and craniocaudad (CC) views of both breasts were obtained. CAD: Full Field Digital Mammography with Computer Added Detection was performed. COMPARISON: Comparison is made with prior mammogram dated December 29, 2019. FINDINGS: Breast Composition: The breasts are heterogeneously dense, which may obscure small masses. There are no dominant masses or suspicious calcifications. No focal clustering of microcalcification is seen. No other significant abnormalities are identified. BI/DIAG MAMM W/CAD, UNILAT IMPRESSION: Stable unilateral diagnostic mammogram. One year follow-up mammogram recommended. (A) ASSESSMENT CATEGORY: BIRADS Category 2: Benign. A letter regarding these results will be sent to the patient by the facility within 30 days. Approximately 10% of breast cancers are not detected by mammography. A normal mammogram should not delay biopsy of a clinically suspicious abnormality. Electronically Signed: Dionicio Haddad, at 15:42 EDT , Service support ,
== END ==
PROVIDERS: PCP Internal Medicine; Referring Provider Internal Medicine Medical Oncology; Visit Provider Internal Medicine Medical Oncology
DX: C50.111 Malignant neoplasm of central portion of right female breast (principal)
CPT/HCPCS: 36415; 77065; 80053; 83615; 85025

== ENCOUNTER → 2021-01-15 13:54 | Outpatient (CLI) | payer MEDICARE, SELFPAY ==
[2019-09-27 11:02] VITALS: BMI 34.1
[2020-01-05 14:15] VITALS: BMI 32.4
--- NOTE | 2021-01-15 13:56 | BI_ITS ---
MAMMOGRAPHY - BILATERAL SCREENING REASON FOR EXAM: Female, 80 years old. Routine annual screening examination. PERTINENT HISTORY: Personal history of breast cancer. Prior right lumpectomy and right stereotactic breast biopsy. TECHNIQUE: Digital bilateral breast maryjane (3D mammographic acquisition) in the CC and MLO projections. 2-D mediolateral oblique (MLO) and craniocaudad (CC) views of both breasts were obtained. CAD: Full Field Digital Mammography with Computer Added Detection was performed. COMPARISON: Comparison is made with prior study dated 12/29/2019 and 12/24/2018. FINDINGS: Breast Composition: The breasts are heterogeneously dense, which may obscure small masses. There are no dominant masses or suspicious calcifications. The patient is status post lumpectomy involving the inferior medial aspect the right breast. Postoperative scarring is seen and deformity. Stable overlying skin thickening. No other significant abnormalities are identified. There has been no significant change since the prior study. BI/SCRN MAMM (CAD)W/MARYJANE BILAT IMPRESSION: Stable bilateral screening mammogram. Yearly follow-up mammogram recommended. (A) ASSESSMENT CATEGORY: BIRADS Category 2: Benign. A letter regarding these results will be sent to the patient by the facility within 30 days. Approximately 10% of breast cancers are not detected by mammography. A normal mammogram should not delay biopsy of a clinically suspicious abnormality. [id number] Electronically Signed: Dionicio Haddad MD at 15:00 EDT , Service support ,
== END ==
PROVIDERS: PCP Internal Medicine; Referring Provider Internal Medicine Medical Oncology; Visit Provider Internal Medicine Medical Oncology
DX: Z12.31 Encounter for screening mammogram for malignant neoplasm of breast (principal); Z85.3 Personal history of malignant neoplasm of breast
CPT/HCPCS: 77063; 77067

== ENCOUNTER → 2022-01-17 | Outpatient (CLI) | payer MEDICARE, SELFPAY ==
[2019-09-27 11:02] VITALS: BMI 34.1
--- NOTE | 2022-01-17 12:03 | BI_ITS ---
MAMMOGRAPHY - BILATERAL SCREENING REASON FOR EXAM: Female, 81 years old. Routine annual screening examination. PERTINENT HISTORY: Personal history of breast cancer. Prior right lumpectomy with radiation treatment. Prior right stereotactic breast biopsy. TECHNIQUE: Digital bilateral breast maryjane (3D mammographic acquisition) in the CC and MLO projections. 2-D mediolateral oblique (MLO) and craniocaudad (CC) views of both breasts were obtained. CAD: Full Field Digital Mammography with Computer Added Detection was performed. COMPARISON: Comparison is made with prior study 01/15/2021 and 01/05/2020. FINDINGS: Breast Composition: The breasts are heterogeneously dense, which may obscure small masses. There are no dominant masses or suspicious calcifications. The patient is status post lumpectomy in the inferior aspect of the right breast. Postoperative scarring is seen at that site. Stable overlying skin thickening. No other significant abnormalities are identified. There has been no significant change since the prior study. BI/SCRN MAMM (CAD)W/MARYJANE BILAT IMPRESSION: Stable bilateral screening mammogram. Yearly follow-up mammogram recommended. (A) ASSESSMENT CATEGORY: BIRADS Category 2: Benign. A letter regarding these results will be sent to the patient by the facility within 30 days. Approximately 10% of breast cancers are not detected by mammography. A normal mammogram should not delay biopsy of a clinically suspicious abnormality. [id number] Electronically Signed: Dionicio Hadadd MD at 12:42 EDT ,
== END | disposition home or self-care (01) ==
PROVIDERS: PCP Internal Medicine; Referring Provider Student in an Organized Health Care Education/Training Program; Visit Provider Student in an Organized Health Care Education/Training Program
DX: Z12.31 Encounter for screening mammogram for malignant neoplasm of breast (principal)
CPT/HCPCS: 77063; 77067

== ENCOUNTER → 2022-01-22 | Outpatient (CLI) | payer MEDICARE, SELFPAY ==
[2019-09-27 11:02] VITALS: BMI 34.1
[2022-01-22 15:48] LABS: Absolute Lymphocyte Count 1.16 X10^3/uL (0.83-4.51); Absolute Neutrophil Count 5.5 X10^3/uL (2.0-7.7); Basophil# 0.06 X10^3/uL; Basophil% 0.8 % (0-1); Eosinophil# 0.13 X10^3/uL; Eosinophils% 1.8 % (0-5); Hematocrit 39.9 % (37-47); Hemoglobin 12.6 g/dL (12.0-15.0); Lymphocyte # 1.16 X10^3/ul (0.83-4.51); Lymphocyte % 15.7 % (19-41); Mean Corp Hgb Conc 31.6 g/dL (32-36); Mean Corpuscular Volume 98.3 fL (81-99); Mean Platelet Vol. 10.9 fl (6.2-12.0); Monocyte# 0.47 X10^3/uL; Monocyte% 6.4 % (0-10); NRBC Flagged by Analyzer 0 % (0-5); Neutrophil # 5.54 X10^3/uL (2.7-7.7); Neutrophil % 74.8 % (47-70); Platelet Count 249 K/mm3 (150-450); RBC Distribution Width CV 14.3 % (11.6-14.6); RBC Distribution Width SD 51.8 fl (35.1-43.9); Red Blood Count 4.06 M/mm3 (4.2-5.4); White Blood Count 7.4 K/mm3 (4.4-11.0)
[2022-01-22 16:34] LABS: ALB/GLOB Ratio 1.1 RATIO (0.9-2.4); AST(SGOT) 22 U/L (15-37); Alanine Aminotransfer ALT/SGPT 30 U/L (13-56); Albumin, Serum 3.7 g/dL (3.2-5.0); Alkaline Phosphatase 91 U/L (45-117); Anion Gap 2 (5-15); BUN 37 mg/dL (7-18); BUN/Creat Ratio 23.9 RATIO (10-20); Calcium,Total 10.3 mg/dL (8.5-10.1); Chloride 108 mmol/L (98-107); Creatinine, Serum 1.55 mg/dL (0.55-1.02); EST Glomerular Filtration Rate 34 mL/min (>60); Est Glom Filt Rate - Afr Amer 41 mL/min (>60); Globulin 3.4 g/dL (2.2-4.2); Glucose 99 mg/dL (74-106); Potassium 4.9 mmol/L (3.5-5.1); Protein, Total 7.1 g/dL (6.4-8.2); Sodium Level 139 mmol/L (136-145); Thyroid Stim Hormone (TSH) 1.63 uIU/mL (0.358-3.74)
== END | disposition home or self-care (01) ==
LOC: BIMLAB 11:44
PROVIDERS: PCP Internal Medicine; Referring Provider Internal Medicine; Visit Provider Internal Medicine
DX: C50.311 Malignant neoplasm of lower-inner quadrant of right female breast (principal); Z17.0 Estrogen receptor positive status [ER+]; R53.83 Other fatigue; E55.9 Vitamin D deficiency, unspecified; E03.9 Hypothyroidism, unspecified
CPT/HCPCS: 36415; 80053; 82306; 84443; 85025

== ENCOUNTER → 2022-01-31 | Outpatient (CLI) | payer MEDICARE, SELFPAY ==
[2019-09-27 11:02] VITALS: BMI 34.1
--- NOTE | 2022-01-31 15:25 | BD_ITS ---
EXAM: XR DEXA BONE DENSITY AXIAL CLINICAL INDICATION: osteopenia TECHNIQUE: Dual energy x-ray absorptiometry performed. Bone mineral density measurements were obtained of the lumbar spine and (optionally) the proximal femurs. Values are compared with gender matched average of normal, and with age, weight and ethnic origin (Z-score) and with healthy young adults (T-score). This report was created using [employer] report [employer] technology. COMPARISON: None. FINDINGS: LUMBAR SPINE BONE MINERAL DENSITY: In the lumbar spine the L1-L3 vertebral bodies gave a bone mineralization density of 1.056 g/sq cm which gave a T score of 0.3. LUMBAR SPINE T-SCORE: See above. RIGHT FEMORAL NECK BONE MINERAL DENSITY: In the right femoral neck the bone mineralization density measured 0.675 g/sq cm which gave a T score of -1.6. LEFT FEMORAL NECK BONE MINERAL DENSITY: In the left femoral neck the bone mineralization density measured 0.657 g/sq cm which gave a T score of -1.7. UNITS OF MEASURE: Bone mineral density is measured in g/cm2. Z-score is the number of standard deviations above age-matched controls. T-score is the number of standard deviations above healthy young adults. WORLD HEALTH ORGANIZATION GUIDELINES: T-score at or above -1 is normal bone mineral density. T-score between -1 and -2.5 is osteopenia. T-score at or below -2.5 is osteoporosis. BD/Dexa Bone Density Study IMPRESSION: Bone mineralization density compatible with osteopenia in the femoral necks and within normal limits in the lumbar spine. Electronically Signed: Johnny Sherman MD at 2:53 EDT ,
== END | disposition home or self-care (01) ==
LOC: OPBD 15:16
PROVIDERS: PCP Internal Medicine; Visit Provider Internal Medicine
DX: M81.0 Age-related osteoporosis without current pathological fracture (principal)
CPT/HCPCS: 77080

== ENCOUNTER → 2022-10-01 | Outpatient (CLI) | payer MEDICARE, SELFPAY ==
[2019-09-27 11:02] VITALS: BMI 34.1
[2022-10-01 12:55] LABS: Anion Gap 6 (5-15); BUN 35 mg/dL (7-18); BUN/Creat Ratio 23.2 RATIO (10-20); Calcium,Total 10.9 mg/dL (8.5-10.1); Chloride 107 mmol/L (98-107); Creatinine, Serum 1.51 mg/dL (0.55-1.02); EST Glomerular Filtration Rate 35 mL/min (>60); Est Glom Filt Rate - Afr Amer 43 mL/min (>60); Glucose 111 mg/dL (74-106); Potassium 4.9 mmol/L (3.5-5.1); Sodium Level 140 mmol/L (136-145)
== END | disposition home or self-care (01) ==
LOC: BIMLAB 11:18
PROVIDERS: PCP Internal Medicine; Referring Provider Internal Medicine; Visit Provider Internal Medicine
DX: I10 Essential (primary) hypertension (principal)
CPT/HCPCS: 36415; 80048

== ENCOUNTER → 2022-11-06 | Outpatient (CLI) | payer MEDICARE, SELFPAY ==
[2019-09-27 11:02] VITALS: BMI 34.1
--- NOTE | 2022-11-06 14:16 | CT_ITS ---
STUDY: CT CHEST WITH CONTRAST REASON FOR EXAM: Female, 82 years old. New lung nodule on XR, retrosternal. Right breast cancer. RADIATION DOSAGE (If Supplied By Facility): CTDIvol = ( 10.31 ) mGy, DLP = ( 406.71 ) mGycm TECHNIQUE: Transaxial imaging was performed following intravenous administration of IV 100mL Isovue-300. Multiplanar coronal and sagittal images were reformatted. Individualized dose optimization techniques were used for this CT. COMPARISON: Comparison is made with prior examination dated February 05, 2018. FINDINGS: CHEST The patient is status post right lumpectomy with heterogeneous appearance of the breasts tissue on the right side and skin thickening. Questionable 1.2 cm nodule in the inferior lateral aspect of the right breast. Calcified granuloma in the posterior aspect of the lingular segment of the left upper lobe as seen on axial image #48. There is no demonstrated pleural abnormality. There are calcifications of the coronary arteries. Normal mediastinum. Normal hilar regions. Normal unenhanced pulmonary arteries. Normal aorta arch and descending thoracic aorta. There are multi-level degenerative changes of the thoracic spine. Increased kyphosis. Heterogeneous appearance of multiple vertebrae with the areas of decreased attenuation. 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 There is no demonstrated abnormality of the visualized upper abdomen. CT/Chest WITH Contrast IMPRESSION: Status post lumpectomy in the right breast with skin thickening and questionable 1.2 cm nodule in the inferior lateral aspect of the right breast. Electronically Signed: Dionicio Haddad MD at 15:01 EDT ,
[2022-11-06 14:40] LABS: CREATININE FINGERSTICK 1.1 mg/dL (0.55-1.02)
== END | disposition home or self-care (01) ==
LOC: CT 14:14
PROVIDERS: PCP Internal Medicine; Referring Provider Internal Medicine; Visit Provider Internal Medicine
DX: R91.1 Solitary pulmonary nodule (principal)
CPT/HCPCS: 71260; Q9967

== ENCOUNTER → 2023-01-20 | Outpatient (CLI) | payer MEDICARE, SELFPAY ==
[2019-09-27 11:02] VITALS: BMI 34.1
--- NOTE | 2023-01-20 13:53 | BI_ITS ---
MAMMOGRAPHY - BILATERAL SCREENING REASON FOR EXAM: Female, 83 years old. Routine annual screening examination. PERTINENT HISTORY: Personal history of breast cancer. Prior right lumpectomy and radiation treatment. TECHNIQUE: Digital bilateral breast maryjane (3D mammographic acquisition) in the CC and MLO projections. 2-D mediolateral oblique (MLO) and craniocaudad (CC) views of both breasts were obtained. CAD: Full Field Digital Mammography with Computer Added Detection was performed. COMPARISON: Comparison is made with prior study dated January 17, 2022 and January 15, 2021. FINDINGS: Breast Composition: The breasts are heterogeneously dense, which may obscure small masses. There are no dominant masses or suspicious calcifications. The patient is status post lumpectomy in the inferior aspect of the right breast. Postoperative scarring is seen at that site. Overlying skin thickening. No other significant abnormalities are identified. There has been no significant change since the prior study. BI/SCRN MAMM (CAD)W/MARYJANE BILAT IMPRESSION: Stable bilateral screening mammogram. Yearly follow-up mammogram recommended. (A) ASSESSMENT CATEGORY: BIRADS Category 2: Benign. A letter regarding these results will be sent to the patient by the facility within 30 days. Approximately 10% of breast cancers are not detected by mammography. A normal mammogram should not delay biopsy of a clinically suspicious abnormality. [id number] Electronically Signed: Dionicio Haddad MD at 15:06 EDT ,
== END | disposition home or self-care (01) ==
LOC: OPBI 13:52
PROVIDERS: PCP Internal Medicine; Referring Provider Internal Medicine Medical Oncology; Visit Provider Internal Medicine Medical Oncology
DX: Z12.31 Encounter for screening mammogram for malignant neoplasm of breast (principal); Z80.3 Family history of malignant neoplasm of breast
CPT/HCPCS: 77063; 77067

== ENCOUNTER → 2023-03-12 | Outpatient (CLI) | payer MEDICARE, SELFPAY ==
[2023-02-26 15:34] VITALS: BMI 34.1
--- NOTE | 2023-03-12 12:57 | ECHODONC_ITS ---
Reason For Study: Heart Failure Procedure This was a 2D Doppler, Color Flow transthoracic echocardiogram. Myocardial strain analysis was performed in this exam to aid in the assessment of cardiac function. Exam performed in department. Left Ventricle Normal LV size. Left ventricular systolic function is normal. The estimated ejection fraction is 60 %. Stage 1 diastolic dysfunction. No regional wall motion abnormalities noted. Right Ventricle Normal RV size. Normal systolic function. Atria Normal left atrium. Normal right atrium. Bubble contrast study negative for right to left interatrial shunt. Mitral Valve Normal mitral valve. Mild (1+) eccentric mitral valve insufficiency. Tricuspid Valve Normal tricuspid valve. Mild tricuspid valve insufficiency. Pulmonary artery systolic pressure is 24 mmHg. Aortic Valve Trisinus/trileaflet aortic valve. Mild (1+) aortic valve insufficiency. Pulmonic Valve Normal pulmonic valve. Great Vessels Mild to moderately dilated aortic root. The pulmonary artery is normal size. Normal inferior vena cava. Pericardium/Pleural No pericardial effusion. Medication Performed a rapid injection of agitated mix of 9 cc saline and 1cc air to assess for atrial septal defect. MMode/2D Measurements & Calculations LVIDd: 4.5 cm IVSd: 1.1 cm LVOT diam: 2.0 cm LVIDs: 2.7 cm LVPWd: 1.1 cm RVDd: 2.9 cm FS: 39.5 % LVOT area: 3.1 cm2 Ao root diam: 4.2 cm LAV(MOD-bp): 42.1 ml LVAd ap4: 21.4 cm2 LAV(MOD-bp) Indexed: 25.1 ml/m2 LVLd ap4: 6.7 cm LAV(MOD-sp2): 44.0 ml EDV(MOD-sp4): 55.2 ml LAV(MOD-sp4): 41.0 ml EDV(sp4-el): 58.1 ml LVAs ap4: 10.3 cm2 LVLs ap4: 5.0 cm ESV(MOD-sp4): 18.3 ml ESV(sp4-el): 18.2 ml EF(MOD-sp4): 66.8 % EF(sp4-el): 68.7 % SV(MOD-sp4): 36.9 ml SV(sp4-el): 39.9 ml LA A4 area: 16.0 cm2 LA dimension(2D): 3.0 cm RA A4 area: 10.4 cm2 Time Measurements MV dec time: 0.25 sec Doppler Measurements & Calculations MV E max chris: 67.3 cm/sec Lat Peak E' Chris: 5.7 cm/sec Med Peak E' Chris: 3.6 cm/sec MV A max chris: 119.2 cm/sec E/E' lat: 11.8 E/E' med: 18.6 MV E/A: 0.56 MV dec slope: 269.8 cm/sec2 Ao V2 max: 208.1 cm/sec AI max chris: 458.6 cm/sec Ao max P.4 mmHg AI max P.1 mmHg Ao V2 mean: 140.7 cm/sec AI dec slope: 255.8 cm/sec2 Ao mean P.1 mmHg AI P1/2t: 525.0 msec Ao V2 VTI: 40.0 cm AV (velocity ratio): 0.67 ASUNCION(I,D): 2.1 cm2 ASUNCION(V,D): 2.0 cm2 LV V1 max: 132.8 cm/sec SV(LVOT): 84.2 ml PA V2 max: 106.0 cm/sec LV V1 max P.1 mmHg LV V1 mean P.2 mmHg LV V1 mean: 97.8 cm/sec LV V1 VTI: 27.0 cm TR max chris: 225.9 cm/sec TR max P.4 mmHg ECHO/ONC Echo Complete Interpretation Summary Normal LV size. Left ventricular systolic function is normal. The estimated ejection fraction is 60 %. Stage 1 diastolic dysfunction. Mild (1+) aortic valve insufficiency. Bubble contrast study negative for right to left interatrial shunt. The global longitudinal strain is normal. The global longitudinal strain = -18. 3 % (normal). Ordering Physician: Olvin Barcenas Referring Physician: Bryanna Felix Performed By: Dinora Kirby, ASHWINI, RVT
== END | disposition home or self-care (01) ==
LOC: CVS 12:55
PROVIDERS: PCP Internal Medicine; Referring Provider Internal Medicine Medical Oncology; Visit Provider Internal Medicine Medical Oncology
DX: R94.31 Abnormal electrocardiogram [ECG] [EKG] (principal)
CPT/HCPCS: 93306; 93356; A4216

== ENCOUNTER → 2023-09-22 | Outpatient (CLI) | payer MEDICARE, SELFPAY ==
[2023-02-26 15:34] VITALS: BMI 34.1
[2023-09-22 15:49] LABS: Vitamin D,25 Hydroxy 52.3 ng/mL
[2023-09-22 16:16] LABS: PTHIN 253.8 pg/mL (18.4-80.1)
--- OUTSIDE RECORDS SUMMARY | 2023-09-22 16:38 | XMS RPT_ITS | CCD ---
Author Name Unknown Address [address] [place] [address] Organization [facility] Care Team Providers [facility] Manager Name Role Phone Sissy Felix MD Primary Care Provider [phone] SISSY FELIX Primary Care Unavailable OLVIN ORACH JR Referring Unavailable SISSY FELIX Referring Unavailable SISSY FELIX Primary Care Unavailable SISSY FELIX Primary Care Unavailable SISSY FELIX Attending Unavailable SISSY FELIX Primary Care Unavailable OLVIN ROACH JR Referring Unavailable SISSY FELIX Primary Care Unavailable OLVIN ROACH JR Referring Unavailable SISSY FELIX Primary Care Unavailable OLVIN ROACH JR Referring Unavailable Medications Completed/Discontinued Medications Medication Drug Class(es) Dates Sig (Normalized) Sig (Original) acetaminophen 500 mg oral tablet (1 source) End: 11-01-2021 take 2 tablets by mouth every eight hours as needed acetaminophen (TYLENOL) 500 mg tablet Take 1,000 mg by mouth every 8 hours as needed for Pain. 0 11/01/2021 Discontinued (Discontinued by Patient) Problems Active Problems Problem Classification Problem Date Documented Date Episodic/Chronic Adjustment disorders (2 sources) Grief finding; Translations: [Adjustment disorder with depressed mood] Onset: 11-01-2021 Chronic Cancer of breast (1 source) Malignant neoplasm of female breast; Translations: [Malignant neoplasm of unspecified site of unspecified female breast] Chronic Osteoarthritis (6 sources) Osteoarthritis of right knee joint; Translations: [Unilateral primary osteoarthritis, right knee] Onset: 05-14-2017 05-14-2017 Chronic Other connective tissue disease (6 sources) History of total knee arthroplasty; Translations: [Presence of right artificial knee joint] Onset: 12-23-2018 12-23-2018 Chronic Other connective tissue disease (8 sources) Abnormal posture; Translations: [Abnormal posture] Onset: 10-02-2022 Episodic Other connective tissue disease (1 source) Abnormal posture; Translations: [Abnormal posture] Onset: 10-02-2022 Episodic Other nervous system disorders (6 sources) Difficulty walking up stairs; Translations: [Difficulty in walking, not elsewhere classified] Onset: 05-14-2017 05-14-2017 Chronic Other nervous system disorders (6 sources) Difficulty walking down stairs; Translations: [Difficulty in walking, not elsewhere classified] Onset: 05-14-2017 05-14-2017 Chronic Other nervous system disorders (7 sources) Abnormal gait; Translations: [Unspecified abnormalities of gait and mobility] Onset: 10-02-2022 Episodic Other nervous system disorders (1 source) Unspecified abnormalities of gait and mobility; Translations: [Abnormality of gait] Onset: 10-02-2022 Episodic Other nutritional; endocrine; and metabolic disorders (6 sources) Obese class I; Translations: [Obesity, unspecified] Onset: 12-31-2017 12-31-2017 Chronic Spondylosis; intervertebral disc disorders; other back problems (8 sources) Degeneration of lumbar intervertebral disc; Translations: [Other intervertebral disc degeneration, lumbar region] Onset: 10-02-2022 Chronic Spondylosis; intervertebral disc disorders; other back problems (7 sources) Acute low back pain; Translations: [Acute left-sided low back pain, unspecified whether sciatica present] Onset: 10-02-2022 Episodic Unclassified (1 source) Other specified cough; Translations: [Other specified cough] Onset: 10-23-2022 Unclassified (1 source) Acute left-sided low back pain, unspecified whether sciatica present; Translations: [Acute left-sided low back pain, unspecified whether sciatica present] Onset: 10-02-2022 Unclassified (1 source) PT Eval Onset: 10-02-2022 Past or Other Problems Problem Classification Problem Date Documented Da te Episodic/Chronic Other connective tissue disease (6 sources) Muscle weakness of limb; Translations: [Muscle weakness (generalized)] Onset: 05-14-2017 05-14-2017 Episodic Other non-traumatic joint disorders (6 sources) Pain in right knee; Translations: [Pain in joint, lower leg] Onset: 05-14-2017 05-14-2017 Episodic Other non-traumatic joint disorders (6 sources) Stiffness of right knee; Translations: [Stiffness of right knee, not elsewhere classified] Onset: 12-23-2018 12-23-2018 Episodic Other non-traumatic joint disorders (6 sources) Difficulty walking; Translations: [Joint disorder, unspecified] Onset: 12-23-2018 12-23-2018 Episodic Results Test Name Value Interpretation Reference Range Facil ity Vital Signs Date Time Vital Sign Value Performing Clinician Faci lity 11-01-2021 14:26-0400 Diastolic blood pressure 86 mm[Hg] Sissy Felix MD Work Phone: [facility] 11-01-2021 14:26-0400 Systolic blood pressure 140 mm[Hg] Sissy Felix MD Work Phone: [facility] 11-01-2021 13:11-0400 Body temperature 98.2 [degF] Sissy Felix MD Work Phone: [facility] 11-01-2021 13:11-0400 Heart rate 99 /min Sissy Felix MD Work Phone: [facility] 11-01-2021 13:11-0400 Respiratory rate 18 /min Sissy Felix MD Work Phone: [facility] 11-01-2021 13:11-0400 SaO2% (BldA) [Mass fraction] 98 % Sissy Felix MD Work Phone: [facility] Encounters Encounter Date Encounter Type Care Provider Facility Start: 10-23-2022 End: 10-23-2022 ambulatory SISSY FELIX Facility:[facility] Start: 10-23-2022 End: 10-23-2022 Subsequent hospital visit by physician [facility] Procedures Date Procedure Procedure Detail Performing Clinician Start: 10-23-2022 Radiologic exam ches t 2 views Sissy Felix MD Start: 07-26-2021 Adult depression screening assessment Sissy Felix MD Work Phone: Plan of Treatment Date Care Activity Detail Author Start: 01-31-2026 Urine microalbumin profile DTA P,TDAP,TD (2 - Td or Tdap) [facility] Start: 07-26-2024 DIABETES SCREEN DIABETES SCREEN [facility] Start: 11-01-2022 ANNUAL PCP TEAM PRECISION ASSEMBLY INSPECTOR DONNA DISEASE VISIT ANNUAL PCP TEAM CHRONIC DISEASE VISIT [facility] Start: 08-11-2022 ADVANCE DIRECTIVE DISCUSSION ADVANCE DIRECTIVE DISCUSSION [facility] Start: 08-11-2022 DEPRESSION ASSESSMENT DEPRESSION ASS ESSMENT [facility] Start: 07-26-2022 Adult depression scr eening assessment DEPRESSION SCREENING [facility] Start: 04-11-2022 Influenza vaccination INFLUENZA (#1) [facility] Start: 02-07-2022 Influenza vaccination INFLUENZA (#1) [facility] Immunizations Immunization Date Immunization Notes Care Provider Fa thor 04-30-2019 zoster vaccine recombinant Sissy Felix MD Work Phone: [facility] 02-17-2019 zoster vaccine recombinant Sissy Felix MD Work Phone: [facility] 12-31-2014 pneumococcal polysaccharide vaccine, 23 valent Velma Rodriguez PT Work Phone: [facility] Payers Date Payer Category Payer Medicare AETNA MEDICARE A ETNA MEDICARE PPO [id number] 2016-Present [phone] [address] [place] [address] [facility] [id number] 2016 Medicare AETNA MEDICARE A ETNA MEDICARE PPO [id number] 2016-Present [phone] [address] [place] [address] [facility] [id number] 2016 Medicare [id number] Social History Date Type Detail Facility Start: 11-15-2016 Tobacco smoking stat us NHIS Never smoked tobacco [facility] Start: 11-15-2016 Tobacco use and exposure Smokeless t obacco non-user [facility] Start: 11-01-2021 Alcohol intake Current drinke r of alcohol (finding) [facility] Start: 12-31-2017 History SDOH Alcohol Comment occasional [facility] Start: 1940 Sex Assigned At Not on file C [facility] Start: 10-22-2021 End: 11-01-2021 Exposure to SARS-CoV-2 (event) Not sure [facility] Clinical Notes 06-08-2021 to 10-23-2022 Padmini Barragan, PT - 10/23/2022 5:53 PM Omar Esquivel, CT - 10/23/2022 2:30 PM Deann Barragan, PT - 10/15/2022 6:59 PM Kristine Barragan, PT - 10/02/2022 6:10 PM EST Note Date & Type Note Facility 10-23-2022 Note HNO ID: [id number] Author: Padmini Barragan PT Service: ? Author Type: Physical Therapist Type: Progress Notes Filed: 10/23/2022 5:55 PM Note Text: Episode Visit Count: 4 Therapist That Will Accept/Oversee The Plan Of Care: Mulugeta Barragan Start of Care Date: 10/02/22 Onset Date: 09/11/22 Plan of Care Certification Date: 12/22/18 Next Certification Due Date: 12/01/22 Patient Identified by Name and Date of : Yes REHABILITATION AND SPORTS THERAPY PHYSICAL THERAPY DISCONTINUANCE OF CARE PLAN OF CARE UPDATE: Assessment: Catalina Siddiqi is discontinued from Physical Therapy services due to goal achievement and maximal benefit. and Patient/Clinician mutual decision to discontinue current plan of care.. Patient was seen for 4 visits from Start of Care Date: 10/02/22 to 10/23/2022 and treatment included: Therapeutic exercise, Manual therapy, and Therapeutic activities, including spine education, body mechanics. Goals for Episode of Care: created on 10/02/22 through 12/01/22 Independent in home exercises.Indep/ M Patient will decrease pain rating by 2 points to meet minimal clinical important difference for numeric pain rating scale.M Restore pain-free lumbar ROM to WFL to allow for I functional act's and HEP M Stand / Walk 30 min or > without pain/symptoms.M Sit 45 minutes without pain/symptoms to allow for functional act's M Maintain proper sitting posture throughout session M Patient will be able to correct postural deviations independently in order to allow for normal mechanics, to decrease current pain , and prevent future recurrence. M Knowledgeable regarding prophylaxis.M Patient will increase strength of core muscles, trunk , abdominals, to 4+ to5/5 to allow for improve gait mechanics/gait pattern and dec pain.M Patient will increase flexibility of bilateral hams, hip flex, and piriformis L to equal unaffected extremity/side to improve ability to maintain proper posture, improve mechanics, and decrease pain.M Patient Goals: To decrease pain, to resume gardening, mow grass.M SUBJECTIVE: Patient Reason for Visit: Pt reports I feel much better. I can do everything in my exercises class, except a couple things , which I've learned to modifiy.. Spine History Symptoms Since Onset: (Improved) Pain is Worse Always: (prolonged standing in one position if unable to place one foot up on a mild lift of 2 inches , to dec strain) Pain: Pain Pain Level: 0 PROMIS Scales T-scores: mean of general population = 50. 5 points is clinically meaningfully difference Percentiles provide an indication of how the patient's score ranks in relation to the general population. Higher percentile rankings indicate better function/quality of life. 50th percentile is the average of the general population and indicates half of respondents had a worse score. OBJECTIVE MEASURES WITH LEVEL OF FUNCTION: Posture / Alignment Lumbo - Pelvic Alignment: level Spine Observations Spine Presents with: (Nontender,) Sensation - Lumbar Sensation: Grossly Intact Lumbar Spine AROM Lumbar Flexion: Normal Lumbar Extension: Normal Lumbar R Side-Bend: Minimal limitation Lumbar L Side-Bend: Minimal limitation Lumbar R Rotation: Normal Lumbar L Rotation: Normal Thoracic Spine AROM Thoracic Extension: Moderate limitation (moderate kyphosis) LE Flexibility R Hamstring Flexibility: wnl L Hamstring Flexibility: wnl R Hip Flexor Flexibility: wnl L Hip Flexor Flexibility: wnl L Piriformis Flexibility: wml LE Strength Trunk Strength: 4+/ 5throughout R LE Strength: hips 4+ to 5/5, distally 5/5 L LE Strength: hips 4+ to 5/5, distally 5/5 TREATMENT: Therapeutic Exercise: 1: AROM trunk seated x all planes x 10 exc NOT Lsp ext, ( + thor sp ext) 3: PPT x 10x 2, seated and supine 4: PPT with 1 leg ext, x core strength l/ r x 10 x 1.5 sets 5: Bridge x 10 x 2 (issued hand out) 6: lateral pelvic slide 7: SL hip abd 10 x 2 l/r (issued hand out) 8: stand Hip ext x 10x 2 9: sidelying/ seated Hip abd l/r 10x 2 10: sit to stand x 8 Skilled Intervention: Patient was educated in proper exercise technique and purpose for exercises. Reviewed and educated patient on additions/changes for home exercise program as above (*). Skilled judgment was provided in selection of appropriate interventions. Provided written instruction for home exercise program to facilitate proper performance and compliance. Therapeutic Activity: 1: Posture ed and rev of improtance of flexibility, muscle control, strngth, coby core m, 2: body mechaniocs, and balance ex instruct / rev 3: goals rev'd and DC PT this date, pt agrees with POC Skilled Intervention: Educated on proper/safe technique for activities performed today. Activity progression based on professional judgment. Billing Therapeutic Exercise Treatment Minutes: 40 Manual TherapyTreatment Minutes: 10 Total Treatment Time Minutes (time (more content not included)... [facility] 10-23-2022 History of Present illness Narrative Episode Visit Count: 4 Therapist That Will Accept/Oversee The Plan Of Care: Mulugeta Barragan Start of Care Date: 10/02/22 Onset Date: 09/11/22 Plan of Care Certification Date: 12/22/18 Next Certification Due Date: 12/01/22 Patient Identified by Name and Date of : Yes REHABILITATION AND SPORTS THERAPY PHYSICAL THERAPY DISCONTINUANCE OF CARE PLAN OF CARE UPDATE: Assessment: Catalina Siddiqi is discontinued from Physical Therapy services due to goal achievement and maximal benefit. and Patient/Clinician mutual decision to discontinue current plan of care.. Patient was seen for 4 visits from Start of Care Date: 10/02/22 to 10/23/2022 and treatment included: Therapeutic exercise, Manual therapy, and Therapeutic activities, including spine education, body mechanics. Goals for Episode of Care: created on 10/02/22 through 12/01/22 Independent in home exercises.Indep/ M Patient will decrease pain rating by 2 points to meet minimal clinical important difference for numeric pain rating scale.M Restore pain-free lumbar ROM to WFL to allow for I functional act's and HEP M Stand / Walk 30 min or > without pain/symptoms.M Sit 45 minutes without pain/symptoms to allow for functional act's M Maintain proper sitting posture throughout session M Patient will be able to correct postural deviations independently in order to allow for normal mechanics, to decrease current pain , and prevent future recurrence. M Knowledgeable regarding prophylaxis.M Patient will increase strength of core muscles, trunk , abdominals, to 4+ to5/5 to allow for improve gait mechanics/gait pattern and dec pain.M Patient will increase flexibility of bilateral hams, hip flex, and piriformis L to equal unaffected extremity/side to improve ability to maintain proper posture, improve mechanics, and decrease pain.M Patient Goals: To decrease pain, to resume gardening, mow grass.M SUBJECTIVE: Patient Reason for Visit: Pt reports I feel much better. I can do everything in my exercises class, except a couple things , which I've learned to modifiy.. Spine History Symptoms Since Onset: (Improved) Pain is Worse Always: (prolonged standing in one position if unable to place one foot up on a mild lift of 2 inches , to dec strain) Pain: Pain Pain Level: 0 PROMIS Scales T-scores: mean of general population = 50. 5 points is clinically meaningfully difference Percentiles provide an indication of how the patient's score ranks in relation to the general population. Higher percentile rankings indicate better function/quality of life. 50th percentile is the average of the general population and indicates half of respondents had a worse score. OBJECTIVE MEASURES WITH LEVEL OF FUNCTION: Posture / Alignment Lumbo - Pelvic Alignment: level Spine Observations Spine Presents with: (Nontender,) Sensation - Lumbar Sensation: Grossly Intact Lumbar Spine AROM Lumbar Flexion: Normal Lumbar Extension: Normal Lumbar R Side-Bend: Minimal limitation Lumbar L Side-Bend: Minimal limitation Lumbar R Rotation: Normal Lumbar L Rotation: Normal Thoracic Spine AROM Thoracic Extension: Moderate limitation (moderate kyphosis) LE Flexibility R Hamstring Flexibility: wnl L Hamstring Flexibility: wnl R Hip Flexor Flexibility: wnl L Hip Flexor Flexibility: wnl L Piriformis Flexibility: wml LE Strength Trunk Strength: 4+/ 5throughout R LE Strength: hips 4+ to 5/5, distally 5/5 L LE Strength: hips 4+ to 5/5, distally 5/5 TREATMENT: Therapeutic Exercise: 1: AROM trunk seated x all planes x 10 exc NOT Lsp ext, ( + thor sp ext) 3: PPT x 10x 2, seated and supine 4: PPT with 1 leg ext, x core strength l/ r x 10 x 1.5 sets 5: Bridge x 10 x 2 (issued hand out) 6: lateral pelvic slide 7: SL hip abd 10 x 2 l/r (issued hand out) 8: stand Hip ext x 10x 2 9: sidelying/ seated Hip abd l/r 10x 2 10: sit to stand x 8 Skilled Intervention: Patient was educated in proper exercise technique and purpose for exercises. Reviewed and educated patient on additions/changes for home exercise program as above (*). Skilled judgment was provided in selection of appropriate interventions. Provided written instruction for home exercise program to facilitate proper performance and compliance. Therapeutic Activity: 1: Posture ed and rev of improtance of flexibility, muscle control, strngth, coyb core m, 2: body mechaniocs, and balance ex instruct / rev 3: goals rev'd and DC PT this date, pt agrees with POC Skilled Intervention: Educated on proper/safe technique for activities performed today. Activity progression based on professional judgment. Billing Therapeutic Exercise Treatment Minutes: 40 Manual TherapyTreatment Minutes: 10 Total Treatment Time Minutes (timed/untimed): 50 Padmini Barragan PT documented in this encounter [facility] 10-23-2022 Note HNO ID: [id number] Author: JAE Viera Service: ? Author Type: Technologist Type: Progress Notes Filed: 10/23/2022 2:59 PM Note Text: Radiology Service Progress Note PATIENT NAME: Catalina Siddiqi DATE OF SERVICE: October 23, 2022 TIME: 2:58 PM PATIENT IDENTITY VERIFICATION COMPLETED USING TWO (2) IDENTIFIERS: Name and Date of confirmed by patient verbally. FALL SCREENING: Has the patient had 2 falls in the last year or 1 fall with injury or currently using an Ambulatory Assistive Device (Walker, Cane, Wheelchair, Crutches, etc.)? No PATIENT GENDER DATA: Female. status: : No status: NO. PATIENT RELEVANT IMPLANT DATA REVIEWED: Not Applicable RADIOLOGY DEPARTMENT: General X-ray: Exam(s) Completed: Chest X-Ray PERIPHERAL IV DATA: Not applicable SIGNED BY: JAE Viera October 23, 2022 2:58 PM [facility] 10-23-2022 History of Present illness Narrative Radiology Service Progress Note PATIENT NAME: Catalina Siddiqi DATE OF SERVICE: October 23, 2022 TIME: 2:58 PM PATIENT IDENTITY VERIFICATION COMPLETED USING TWO (2) IDENTIFIERS: Name and Date of confirmed by patient verbally. FALL SCREENING: Has the patient had 2 falls in the last year or 1 fall with injury or currently using an Ambulatory Assistive Device (Walker, Cane, Wheelchair, Crutches, etc.)? No PATIENT GENDER DATA: Female. status: : No status: NO. PATIENT RELEVANT IMPLANT DATA REVIEWED: Not Applicable RADIOLOGY DEPARTMENT: General X-ray: Exam(s) Completed: Chest X-Ray PERIPHERAL IV DATA: Not applicable SIGNED BY: JAE Viera October 23, 2022 2:58 PM documented in this encounter [facility] 10-15-2022 Note HNO ID: [id number] Author: Padmini Barragan PT Service: ? Author Type: Physical Therapist Type: Progress Notes Filed: 10/15/2022 7:02 PM Note Text: Episode Visit Count: 3 Therapist That Will Accept/Oversee The Plan Of Care: Mulugeta Barragan Start of Care Date: 10/02/22 Onset Date: 09/11/22 Plan of Care Certification Date: 12/22/18 Next Certification Due Date: 12/01/22 Patient Identified by Name and Date of : Yes REHABILITATION AND SPORTS THERAPY PHYSICAL THERAPY TREATMENT NOTE ASSESSMENT: Catalina Siddiqi tolerated the session with decreased symptoms and no issues. She demonstrated improvements in functional mobility, pain ,therapeutic exercise tolerance for ROM and strength, mild difficulty with core / abdominal breathing. The patient will continue to benefit from ongoing skilled physical therapy to progress toward set goals. PLAN FOR NEXT VISIT: manual PT if necc.; Progress overall Hip strength and core muscle ex,( ther band for core / spine, SUBJECTIVE: Patient Reason for Visit: pt reports , I am feeling alot better, and no more pain. I am doing HEP and my ther ex classess. Pain: Pain Pain Level: 0 OBJECTIVE MEASURES WITH LEVEL OF FUNCTION: Lumbar Spine AROM Lumbar R Side-Bend: Minimal limitation Lumbar L Side-Bend: Minimal limitation Lumbar R Rotation: Minimal limitation Lumbar L Rotation: Minimal limitation TREATMENT: Therapeutic Exercise: 1: AROM trunk seated x all planes x 10 exc NOT Lsp ext, ( + thor sp ext) 3: PPT x 10x 2, seated and supine 4: seated abdominalbreathing , and reclined seated abdominal decompression breaths with core activation. x 15 min 5: bridge x 15 x 2 6: scap retraction with OTB seated ( poss issued - chk next visit) 7: standing Hip abd x 10 l/r 8: stand Hip ext x 10 9: sidelying/ seated Hip abd l/r 10 10: Pt resumed her lateral SI/Lumbar mob at the wall I Skilled Intervention: Patient was educated in proper exercise technique and purpose for exercises. Reviewed and educated patient on additions/changes for home exercise program as above (*). Skilled judgment was provided in selection of appropriate interventions. Manual Therapy: 1: assess SI : compr/ dist in prone : B neg; Mild tenderness L SI soft tissue/lig, discussed poss inflammed, But no longer out of alignment 2: STM B paraspinals in prone Skilled Intervention: Manual skills to improve joint mobility, ROM, and decrease pain. Utilized anatomy knowledge of the therapist, and assessment of patient's response to intervention. Billing Therapeutic Exercise Treatment Minutes: 35 Manual TherapyTreatment Minutes: 10 Total Treatment Time Minutes (timed/untimed): 45 Padmini Barragan, PT [facility] 10-15-2022 History of Present illness Narrative Episode Visit Count: 3 Therapist That Will Accept/Oversee The Plan Of Care: Mulugeta Barragan Start of Care Date: 10/02/22 Onset Date: 09/11/22 Plan of Care Certification Date: 12/22/18 Next Certification Due Date: 12/01/22 Patient Identified by Name and Date of : Yes REHABILITATION AND SPORTS THERAPY PHYSICAL THERAPY TREATMENT NOTE ASSESSMENT: Catalina Siddiqi tolerated the session with decreased symptoms and no issues. She demonstrated improvements in functional mobility, pain ,therapeutic exercise tolerance for ROM and strength, mild difficulty with core / abdominal breathing. The patient will continue to benefit from ongoing skilled physical therapy to progress toward set goals. PLAN FOR NEXT VISIT: manual PT if necc.; Progress overall Hip strength and core muscle ex,( ther band for core / spine, SUBJECTIVE: Patient Reason for Visit: pt reports , I am feeling alot better, and no more pain. I am doing HEP and my ther ex classess. Pain: Pain Pain Level: 0 OBJECTIVE MEASURES WITH LEVEL OF FUNCTION: Lumbar Spine AROM Lumbar R Side-Bend: Minimal limitation Lumbar L Side-Bend: Minimal limitation Lumbar R Rotation: Minimal limitation Lumbar L Rotation: Minimal limitation TREATMENT: Therapeutic Exercise: 1: AROM trunk seated x all planes x 10 exc NOT Lsp ext, ( + thor sp ext) 3: PPT x 10x 2, seated and supine 4: seated abdominalbreathing , and reclined seated abdominal decompression breaths with core activation. x 15 min 5: bridge x 15 x 2 6: scap retraction with OTB seated ( poss issued - chk next visit) 7: standing Hip abd x 10 l/r 8: stand Hip ext x 10 9: sidelying/ seated Hip abd l/r 10 10: Pt resumed her lateral SI/Lumbar mob at the wall I Skilled Intervention: Patient was educated in proper exercise technique and purpose for exercises. Reviewed and educated patient on additions/changes for home exercise program as above (*). Skilled judgment was provided in selection of appropriate interventions. Manual Therapy: 1: assess SI : compr/ dist in prone : B neg; Mild tenderness L SI soft tissue/lig, discussed poss inflammed, But no longer out of alignment 2: STM B paraspinals in prone Skilled Intervention: Manual skills to improve joint mobility, ROM, and decrease pain. Utilized anatomy knowledge of the therapist, and assessment of patient's response to intervention. Billing Therapeutic Exercise Treatment Minutes: 35 Manual TherapyTreatment Minutes: 10 Total Treatment Time Minutes (timed/untimed): 45 Padmini Barragan PT documented in this encounter [facility] 10-08-2022 Note HNO ID: [id number] Author: Lyn Brooke PT Service: ? Author Type: Physical Therapist Type: Progress Notes Filed: 10/08/2022 1:28 PM Note Text: Episode Visit Count: 2 Therapist That Will Accept/Oversee The Plan Of Care: Mulugeta Barragan Start of Care Date: 10/02/22 Onset Date: 09/11/22 Plan of Care Certification Date: 12/22/18 Next Certification Due Date: 12/01/22 Patient Identified by Name and Date of : Yes REHABILITATION AND SPORTS THERAPY PHYSICAL THERAPY TREATMENT NOTE ASSESSMENT: Catalina Siddiqi tolerated the session with no issues. She demonstrated difficulty with hookyling heel taps d/t pain secondary to lumbar extension with the movement. The patient will continue to benefit from ongoing skilled physical therapy to progress toward set goals. PLAN FOR NEXT VISIT: Progress manual tx to L LBP- S-I area, LE and core/ spine strengthening SUBJECTIVE: Patient Reason for Visit: pt reports that she is feeling a lot better. she is taking a new medication and it is making her cough. Pain: Pain Pain Level: 0 OBJECTIVE MEASURES WITH LEVEL OF FUNCTION: Lumbar Spine AROM Lumbar Flexion: Normal Lumbar Extension: Normal (with inc pain, due to possible anterio shifting in Lower lumbar vertebrae per xray) Lumbar R Side-Bend: Minimal limitation Lumbar L Side-Bend: Minimal limitation Lumbar R Rotation: Minimal limitation Lumbar L Rotation: Minimal limitation TREATMENT: Therapeutic Exercise: 1: *Bridge 3x15 2: *Supine SLR 3x15 3: PPT 3x20 4: PPT with LE extension 5: PPT with heel taps 6: hooklying hip adduction 3x15 Skilled Intervention: Patient was educated in proper exercise technique and purpose for exercises. Skilled judgment was provided in selection of appropriate interventions. Manual Therapy: 1: STM B lumbar paraspinals Skilled Intervention: Manual skills to improve joint mobility, ROM, and decrease pain. Utilized anatomy knowledge of the therapist, and assessment of patient's response to intervention. Billing Therapeutic Exercise Treatment Minutes: 30 Manual TherapyTreatment Minutes: 10 Total Treatment Time Minutes (timed/untimed): 40 Lyn Brooke PT [facility] 10-02-2022 Note HNO ID: [id number] Author: Padmini Barragan PT Service: ? Author Type: Physical Therapist Type: Progress Notes Filed: 10/04/2022 6:36 PM Note Text: Episode Visit Count: 1 Therapist That Will Accept/Oversee The Plan Of Care: Mulugeta Barragan Start of Care Date: 10/02/22 Onset Date: 09/11/22 Plan of Care Certification Date: 12/22/18 Next Certification Due Date: 04/23/23 Patient Identified by Name and Date of : Yes REHABILITATION AND SPORTS THERAPY PHYSICAL THERAPY EVALUATION PLAN OF CARE: Assessment: Catalina Siddiqi presents with diagnosis of intervertebral disc degeneration with appearance of anterior shifting L4 on L5 that interferes with rising from a chair, standing, stair negotiation, walking, physical activities, recreational activities, kneeling, squatting, sleeping Pt is usually very active and has a regular exercise program for flexibility, strength and mild aerobic/ walk ( as deepa) prior to this painful episode. She would like to resume prior activities. . She presents with impairments in balance, flexibility, gait, independence in exercise, joint mobility, overall function, strength, symptom management, and tissue tenderness. PROMIS? (Patient-Reported Outcomes Measurement Information System) scores were reviewed and identified as NOT performed Prognosis for therapy is Good due to: current objective clinical presentation, good overall health status, acuteness of condition, positive past response to therapy, Prognosis may be limited due to advanced age . She will benefit from skilled therapy services to meet the goals established for this plan of care as noted below. Classification Low Back Pain Subgroup Classification: Core stabilization subgroup: recommended visits 10. Goals for Episode of Care: created on 10/02/22 through 12/01/22 Independent in home exercises. Patient will decrease pain rating by 2 points to meet minimal clinical important difference for numeric pain rating scale. Restore pain-free lumbar ROM to WFL to allow for I functional act's and HEP Stand / Walk 30 min or > without pain/symptoms. Sit 45 minutes without pain/symptoms to allow for functional act's Maintain proper sitting posture throughout session Patient will be able to correct postural deviations independently in order to allow for normal mechanics, to decrease current pain , and prevent future recurrence. Knowledgeable regarding prophylaxis. Patient will increase strength of core muscles, trunk , abdominals, to 4+ to5/5 to allow for improve gait mechanics/gait pattern and dec pain. Patient will increase flexibility of bilateral hams, hip flex, and piriformis L to equal unaffected extremity/side to improve ability to maintain proper posture, improve mechanics, and decrease pain. Patient Goals: To decrease pain, to resume gardening, mow grass. Planned Interventions, Frequency, and Duration: Current Frequency: 2x/week Duration: Two months Total Number of Visits Planned: 16 Planned Treatment Interventions: Therapeutic activities (29530), Therapeutic exercise (15762), Manual therapy (02712), Self-skilled nursing management (62746), Gait Training (31880) PLAN FOR NEXT VISIT: Progress manual tx to L LBP- S-I area, LE and core/ spine strengthening Patient demonstrates good understanding of plan of care and treatment. The above goals and plan of care were discussed and agreed upon by patient/family. SUBJECTIVE: Catalina Siddiqi is a 82 year old female seen today for PT eval for Low back pain, to decrease pain, learn what to do to help the pain. Patient Goals: To decrease pain, to resume gardening, mow grass. Functional Limitations: rising from a chair, standing, stair negotiation, walking, physical activities, recreational activities, kneeling, squatting, sleeping Prior Level of Function: Independent without limitations Relevant History Past Relevant Medical Conditions: Arthritis, Cancer Preferred Language: Maori Right or Left Handed: Right Employment: Retired Recreation / Current Exercise: senior ther ex class; perform I spine, and LE stretches and strength ex from prior injury, Hobbies / Interests: gardening, mowing , cooking, cleaning, Home Environment Patient Lives With: Spouse Assistance Available: PRN Home Type: Ranch Entry To Home: Stairs Number Of Stairs Into Home: 1 Tub/Shower Type: walkin Intake Information: Prescription present Previous Treatment: Self prescribed exercises Red Flags Vertebral Fracture Red Flags: Age >70, Female Vertebral Fracture Clinical Reasoning: Proceed with caution due to the above (1-2) risk factors Abdominal Aortic Aneurysm Red Flags: Age >60 Abdominal Aortic Aneurysm Clinical Reasoning: Proceed with caution Cancer Clinical Reasoning: Proceed with caution Cauda Equina Syndrome Clinical Reasoning: No identified risk factors. Red Flags - Cervical Cancer Clinical Reasoning: Proceed with caution Spine H (more content not included)... [facility] 10-02-2022 History of Present illness Narrative Episode Visit Count: 1 Therapist That Will Accept/Oversee The Plan Of Care: Mulugeta Barragan Start of Care Date: 10/02/22 Onset Date: 09/11/22 Plan of Care Certification Date: 12/22/18 Next Certification Due Date: 12/01/22 Patient Identified by Name and Date of : Yes REHABILITATION AND SPORTS THERAPY PHYSICAL THERAPY EVALUATION PLAN OF CARE: Assessment: Catalina Siddiqi presents with diagnosis of intervertebral disc degeneration with appearance of anterior shifting L4 on L5 that interferes with rising from a chair, standing, stair negotiation, walking, physical activities, recreational activities, kneeling, squatting, sleeping Pt is usually very active and has a regular exercise program for flexibility, strength and mild aerobic/ walk ( as deepa) prior to this painful episode. She would like to resume prior activities. . She presents with impairments in balance, flexibility, gait, independence in exercise, joint mobility, overall function, strength, symptom management, and tissue tenderness. PROMIS (Patient-Reported Outcomes Measurement Information System) scores were reviewed and identified as NOT performed Prognosis for therapy is Good due to: current objective clinical presentation, good overall health status, acuteness of condition, positive past response to therapy, Prognosis may be limited due to advanced age . She will benefit from skilled therapy services to meet the goals established for this plan of care as noted below. Classification Low Back Pain Subgroup Classification: Core stabilization subgroup: recommended visits 10. Goals for Episode of Care: created on 10/02/22 through 12/01/22 Independent in home exercises. Patient will decrease pain rating by 2 points to meet minimal clinical important difference for numeric pain rating scale. Restore pain-free lumbar ROM to WFL to allow for I functional act's and HEP Stand / Walk 30 min or > without pain/symptoms. Sit 45 minutes without pain/symptoms to allow for functional act's Maintain proper sitting posture throughout session Patient will be able to correct postural deviations independently in order to allow for normal mechanics, to decrease current pain , and prevent future recurrence. Knowledgeable regarding prophylaxis. Patient will increase strength of core muscles, trunk , abdominals, to 4+ to5/5 to allow for improve gait mechanics/gait pattern and dec pain. Patient will increase flexibility of bilateral hams, hip flex, and piriformis L to equal unaffected extremity/side to improve ability to maintain proper posture, improve mechanics, and decrease pain. Patient Goals: To decrease pain, to resume gardening, mow grass. Planned Interventions, Frequency, and Duration: Current Frequency: 2x/week Duration: Two months Total Number of Visits Planned: 16 Planned Treatment Interventions: Therapeutic activities (58298), Therapeutic exercise (58905), Manual therapy (71317), Self-skilled nursing management (13651), Gait Training (24640) PLAN FOR NEXT VISIT: Progress manual tx to L LBP- S-I area, LE and core/ spine strengthening Patient demonstrates good understanding of plan of care and treatment. The above goals and plan of care were discussed and agreed upon by patient/family. SUBJECTIVE: Catalina Siddiqi is a 82 year old female seen today for PT eval for Low back pain, to decrease pain, learn what to do to help the pain. Patient Goals: To decrease pain, to resume gardening, mow grass. Functional Limitations: rising from a chair, standing, stair negotiation, walking, physical activities, recreational activities, kneeling, squatting, sleeping Prior Level of Function: Independent without limitations Relevant History Past Relevant Medical Conditions: Arthritis, Cancer Preferred Language: Maori Right or Left Handed: Right Employment: Retired Recreation / Current Exercise: senior ther ex class; perform I spine, and LE stretches and strength ex from prior injury, Hobbies / Interests: gardening, mowing , cooking, cleaning, Home Environment Patient Lives With: Spouse Assistance Available: PRN Home Type: Ranch Entry To Home: Stairs Number Of Stairs Into Home: 1 Tub/Shower Type: walkin Intake Information: Prescription present Previous Treatment: Self prescribed exercises Red Flags Vertebral Fracture Red Flags: Age >70, Female Vertebral Fracture Clinical Reasoning: Proceed with caution due to the above (1-2) risk factors Abdominal Aortic Aneurysm Red Flags: Age >60 Abdominal Aortic Aneurysm Clinical Reasoning: Proceed with caution Cancer Clinical Reasoning: Proceed with caution Cauda Equina Syndrome Clinical Reasoning: No identified risk factors. Red Flags - Cervical Cancer Clinical Reasoning: Proceed with caution Spine History Symptoms Location at Onset: Back Symptoms Since Onset: Unchanging Pain is Worse Always: Standing Pain is Worse Sometimes: Walking Pain is Better Always: Lying Pain is Better Sometimes: Sitting Pain: Pain Pain Level: 2 (standing increases to 5-9/10, on 1-10 scale) Pain Location: Sacrum, Low Back/Lumbar Spine - Left (possible SI) Description: Aching, Sharp Frequency: Intermittent, With movement, Standing Post Treatment Pain Post Treatment Pain Level: 2 PROMIS Scales T-scores: mean of general population = 50. 5 points is clinically meaningfully difference Percentiles provide an indication of how the patient's score ranks in relation to the general population. Higher percentile rankings indicate better function/quality of life. 50th percentile is the average of the general population and indicates half of respondents had a worse score. T-scores: mean of general population = 50. 5 points is clinically meaningfully difference Percentiles provide an indication of how the patient's score ranks in relation to the general population. Higher percentile rankings indicate better function/quality of life. 50th percentile is the average of the general population and indicates half of respondents had a worse score. OBJECTIVE MEASURES WITH LEVEL OF FUNCTION: Posture / Alignment Lumbo - Pelvic Alignment: level Sitting Posture: Increased lumbar lordosis Effects of Posture Correction: none Spine Observations L Lumbar Spine Palpation Tenderness: PSIS (posterior superior iliac spine), Sciatic notch Sensation - Lumbar Sensation: Grossly Intact Lumbar Spine AROM Lumbar Flexion: Normal Lumbar Extension: Normal (with inc pain, due to possible anterio shifting in Lower lumbar vertebrae per xray) Lumbar R Side-Bend: Minimal limitation Lumbar L Side-Bend: Minimal limitation Lumbar R Rotation: Minimal limitation Lumbar L Rotation: Minimal limitation Thoracic Spine AROM Thoracic Extension: Moderate limitation (kyphosis) LE Flexibility Flexibility: Hamstring Flexibility, Hip Flexor Flexibility, Piriformis Flexibility R Hamstring Flexibility: wnl L Hamstring Flexibility: wnl R Hip Flexor Flexibility: min tight L Hip Flexor Flexibility: min tight L Piriformis Flexibility: min tight LE Strength Trunk Strength: grossly abdominal core : 4-/5, latiss : 4-,scap retr: 4/5 R LE Strength: grossly hip 4+/5, knee 5/5 ankle 4+ to 5/5 L LE Strength: grossly hip 4+/5, knee 5/5 ankle 4+ to 5/5 Functional Strength Functional Strength: Step down, Step up, [place], Bilateral Heel Raise Step up: I Step down: I Minisquat: I Special Tests - Hip and Spine Hip and Spine Special Tests: SLR Test, Scour Test, SI Tests SLR Test: Right Negative, Left Negative Scour Test: Left Negative, Right Negative SI Distraction Test: Left Negative, Right Negative SI Compression Test: Right Negative, Left Negative Special Test Comments: sacral pressure, P-A: dec pain , L lateral SI, mob: dec pain Gait Weight Bearing Status: FWB Gait: Independent Gait Distance (feet): 200' Gait Device: None Gait Deviations: General Deviations General Deviations/Observations: Coco decreased, Lateral sway increased, Non-functional gait speed Balance Dynamic Standing Balance: Toe Walk, Heel Walk Heel Walk: 3' Functional Performance Test Results 10 Meter Walk Test Trial 1 (seconds): 6.8 10 Meter Walk Test Average (m/sec): 0.88 Education: Education Learning Preferences: Demonstration, Explanation, Performance Barriers: Acuity of Illness Learning/educational needs: Procedure / Surgery, Safety, Home exercise program, Plan of Care, Gait Training Education Provided: Yes, see treatment interventions for education provided Education Provided To: Patient Education Mode/Type: Demonstration, Explanation/Discussion, Performance, Teach Back Response to Education/Teach Back: States/Identifies, Requires Review/Additional Education TREATMENT: PT Treatment Interventions: Therapeutic Activity, Therapeutic Exercise Evaluation Evaluation Therapeutic Exercise: 1: AROM x all planes spine, x 5x 2 2: Ham stretch and hip flexor stretches manual by PT 3: Pt seated and stand lumbar flex stretches 4: lateral pelvic slide - modified ( pt 's prior Indep ther ex), to perform w/o a bounce, to inc muscle control and avoid injury ,ilium to L side,> gentle Lumbar shift to R Skilled Intervention: Patient was educated in proper exercise technique and purpose for exercises. Reviewed and educated patient on additions/changes for home exercise program as above (*). Skilled judgment was provided in selection of appropriate interventions. Therapeutic Activity: 1: PTEval and POC discussed with pt goals/ tx 2: discussed anatomy of spine and L-S area of paimn 3: sacral P-A: dec pain , L lateral SI, mob: dec pain Skilled Intervention: Proper patient guarding to prevent falls/increase patient safety with minimal assistance to assist patient while performing posture ed , and funct tests Educated on proper/safe technique for activities performed today. Activity progression based on professional judgment. Billing * Evaluation Moderate Complexity: 1 Unit Therapeutic Exercise Treatment Minutes: 20 Therapeutic Activity Treatment Minutes: 15 Total Treatment Time Minutes (timed/untimed): 58 Padmini Barragan PT documented in this encounter [facility] 11-01-2021 Instructions Sissy Felix MD - 11/01/2021 2:22 PM EDT Call if any concerns or questions. documented in this encounter [facility] 11-01-2021 History of Present illness Narrative This note was created using [employer]. Subjective Catalina Siddiqi is a 81 year old female. The patient is here for an acute visit. She has concerns about grief and just wants to discuss her 's . She reports she just can't comprehend what caused him to pass away. She reports he had always had trouble with his asthma, but just a few days prior to his , he was becoming more short of breath. He called his hand miter operator and had his inhaler changed which he took for the first time the morning of his passing. She reports he was seen for physical therapy a couple of days before and was noted to be having an increasing amount of difficulty doing his exercises due to breathing difficulty. At that time, his oxygen was low normal 90-92%. The patient reports on the day he , she was helping him sit back into his chair as he was concerned about falling. At that time, she heard him let out a big breath and he was gone. She states she is just having a very hard time dealing with it and needs to know why/how he . The patient reports her grief is intermittent. On most days, she does very well. She goes to grief counseling which she has found has helped a lot. She is still going out and doing things, but reports it hits her out of nowhere. She reports just a few nights ago she woke up and started to cry. She has two great grandchildren and good family support. She reports she always seems to feel tired, although she feels as though she is sleeping well. The history is provided by the patient. ALLERGIES No Known Allergies Current Outpatient Medications Medication Sig Dispense Refill Zinc 50 mg tab Take by mouth. OTC PRODUCT Vitamin C OTC PRODUCT Preservision levothyroxine (SYNTHROID) 50 mcg tablet Take 1 tablet by mouth once daily. 90 tablet 1 tamoxifen (NOLVADEX) 20 mg tablet Take 20 mg by mouth once daily. docusate sodium (COLACE) 100 mg capsule Take 100 mg by mouth once daily. aspirin 81 mg chewable tablet Take 81 mg by mouth once daily. Cholecalciferol, Vitamin D3, (VITAMIN D) 1,000 unit cap Take 1,000 Units by mouth once daily. No current facility-administered medications for this visit. ACTIVE PROBLEM LIST Pain in Right Knee Difficulty Walking Up Stairs Difficulty Walking Down Stairs Muscle Weakness of Lower Extremity Primary Osteoarthritis of Right Knee Obesity, Class I, Bmi 30-34.9 S/P Total Knee Arthroplasty, Right Knee Stiffness, Right Walking Difficulty Due to Knee Joint Disorder Social History Tobacco Use Smoking status: Never Smoker Smokeless tobacco: Never Used Vaping Use Vaping Use: Never used Substance Use Topics Alcohol use: Yes Comment: occasional Drug use: No Family History Problem Relation Age of Onset Cancer Mother lung Coronary Artery Disease Father Reviewed past medical and surgical history. Review of Systems Constitutional: Positive for fatigue. Negative for appetite change. Psychiatric/Behavioral: Positive for depression and dysphoric mood. Negative for confusion and sleep disturbance. The patient is not nervous/anxious. Objective BP 140/86 (BP Site: Right Arm, BP Position: Sitting, BP Cuff Size: Regular Adult) Pulse 99 Temp 36.8 C (98.2 F) Resp 18 SpO2 98% Physical Exam Vitals and nursing note reviewed. Constitutional: General: She is not in acute distress. Appearance: She is not diaphoretic. HENT: Head: Normocephalic and atraumatic. Cardiovascular: Rate and Rhythm: Normal rate. Pulmonary: Effort: No respiratory distress. Skin: General: Skin is warm and dry. Neurological: Mental Status: She is alert and oriented to person, place, and time. Psychiatric: Mood and Affect: Mood is depressed. Affect is tearful. Behavior: Behavior is cooperative. Assessment and Plan 1. Grief - ICD9: 309.0, ICD10: F43.21 The patient is having a hard time since her 's back in July. She really wants to know the cause of his . Reviewed his chart with her and went over everything. Explained that it is possible it was his asthma which led to pulmonary exhaustion and then arrest. It is also possible he had undiagnosed heart disease and had a heart attack. Explained that unfortunately I cannot give her an exact cause of his , but these are the likely causes and she voiced understanding. She had questions about his cardiac work up last year which was reviewed with him. She inquired about him having a heart attack stating that his blood pressure was always good and he overall was healthy. Explained that this doesn't rule out heart disease and heart disease is only detected with certain tests that are done when there is indication. Discussed medications, but the patient declined stating she really does think she is overall doing well. Will continue to monitor closely. She reports she will contact the office if she feels that she needs anything. 2. Malignant neoplasm of female breast, unspecified estrogen receptor status, unspecified laterality, unspecified site of breast (HCC) - ICD9: 174.9, ICD10: C50.919 Patient follows with oncology The patient is here for an acute visit. Plan as above. Medications reviewed with the patient. She was instructed to call with any concerns or questions and she was in agreement. Return if symptoms worsen or fail to improve. Sissy Felix MD I spent a total of 44 minutes on the date of the service which included preparing to see the patient, [id number] patient care, completing clinical documentation and counseling and educating the patient/family/caregiver. documented in this encounter [facility] 07-26-2021 Note HNO ID: [id number] Author: Sissy Felix MD Service: ? Author Type: Physician Type: Progress Notes Filed: 07/26/2021 3:30 PM Note Text: Subjective The patient is here for a well visit. She is due for some routine blood work. She is up to date on her screening and immunizations. She need refills today. She is a non-smoker. The patient had torn some ligaments in her ankle. She is following with podiatry and was recently told it was healing well. She reports it isn't bothering her at all. The patient has been on the same dose of synthroid for years. She takes it first thing in the morning before anything else and has no problems with it. The patient reports she still occasionally gets left hand numbness. She has an appointment with a hand specialist coming up. She reports she is still having fatigue as well which hasn't changed. She has no questions or concerns today. Her very recently suddenly which she has been struggling with. Patient has no known allergies. Medications reviewed: Yes Catalina denies regular aerobic exercise, but stays active. She watches her diet for sodium, low fat and low cholesterol most of the time. List of current specialists seen: Orthopedics, ophthalmology, oncology and radiation oncology. End of Live Planning discussed including patients advanced directive wishes: Yes I am willing to follow Catalina's advanced directives. PHQ-2 / Depression screen She in the past two weeks admits to having felt down, depressed, hopeless or with little interest or pleasure in doing things. PHQ-2 Score: 3 PHQ-9 Score: 11 Functional Ability/Safety Screen 1. Was the patient's timed Up and Go test unsteady or longer than 30 seconds? No 2. Does the patient need help with the phone, transportation, shopping,preparing meals, housework, laundry, medications or managing money? No 3. Does your home have rugs in the hallway, lack of grab bars in the bathroom, lack of handrails on the stairs or have poor lighting? No Hearing Evaluation: normal The history is provided by the patient. Thyroid Problem Presents for follow-up visit. Patient reports no constipation, depressed mood, diarrhea, leg swelling, palpitations, visual change, weight gain or weight loss (weight gain). The symptoms have been stable. Fatigue This is a chronic problem. The current episode started more than 1 year ago. The problem occurs constantly. The problem has been unchanged. Associated symptoms include headaches. Pertinent negatives include no abdominal pain, chest pain, congestion, coughing, fever, nausea, rash, sore throat, visual change, vomiting or weakness. ALLERGIES No Known Allergies Current Outpatient Medications Medication Sig Dispense Refill - Zinc 50 mg tab Take by mouth. - OTC PRODUCT Vitamin C - OTC PRODUCT Preservision - levothyroxine (SYNTHROID) 50 mcg tablet Take 1 tablet by mouth once daily. 90 tablet 1 - tamoxifen (NOLVADEX) 20 mg tablet Take 20 mg by mouth once daily. - acetaminophen (TYLENOL) 500 mg tablet Take 1,000 mg by mouth every 8 hours as needed for Pain. - docusate sodium (COLACE) 100 mg capsule Take 100 mg by mouth once daily. - aspirin 81 mg chewable tablet Take 81 mg by mouth once daily. - Cholecalciferol, Vitamin D3, (VITAMIN D) 1,000 unit cap Take 1,000 Units by mouth once daily. - antiox #8/om3/dha/epa/lut/zeax (PRESERVISION AREDS 2, OMEGA-3, ORAL) Take by mouth. (Patient not taking: Reported on 07/26/2021 ) No current facility-administered medications for this visit. ACTIVE PROBLEM LIST Pain in Right Knee Difficulty Walking Up Stairs Difficulty Walking Down Stairs Muscle Weakness of Lower Extremity Primary Osteoarthritis of Right Knee Obesity, Class I, Bmi 30-34.9 S/P Total Knee Arthroplasty, Right Knee Stiffness, Right Walking Difficulty Due to Knee Joint Disorder Social History Tobacco Use - Smoking status: Never Smoker - Smokeless tobacco: Never Used Vaping Use - Vaping Use: Never used Substance Use Topics - Alcohol use: Yes Comment: occasional - Drug use: No Family History Problem Relation Age of Onset - Cancer Mother lung - Coronary Artery Disease Father Reviewed past medical and surgical history. BP 138/88 (BP Site: Right Arm, BP Position: Standing, BP Cuff Size: Regular Adult) Pulse 85 Temp 36.9 ?C (98.5 ?F) Resp 16 Ht 153.7 cm (5' 0.5 ) Wt 79.4 kg (175 lb) SpO2 100% BMI 33.61 kg/m? Review of Systems Constitutional: Positive for malaise/fatigue. Negative for fever, weight gain and weight loss (weight gain). HENT: Negative for congestion, hearing loss and sore throat. Eyes: Positive for blurred vision (macular degeneration). Respiratory: Negative for cough and shortness of breath. Cardiovascular: Positive for leg swelling (mild in left leg). Negative for chest pain and palpitations. Gastrointestinal: Negative for abdominal pain, constipation, diarrhea (more content not included)... [facility] 06-08-2021 Note HNO ID: [id number] Author: Karishma Powell MA Service: ? Author Type: Middle School Teacher Type: Progress Notes Filed: 06/08/2021 1:32 PM Note Text: ED Follow Up: Patient discharged from [facility] ED on 06/03/2021. 1. How are you feeling since your ED visit? na Have your symptoms improved or resolved? Not applicable 2. Were you prescribed any medications while in the ED or advised to stop any medication? Not applicable - If yes, were you able to fill your prescriptions? Not applicable -if stopped medication, what was the medication? na 3. Were you advised to schedule a follow up appointment with your provider? Not applicable - If no, Do you feel like you need an appointment scheduled? Not applicable - If yes, Do you need this scheduled now or has this already been scheduled? Not applicable 4. Were you able to contact the office or manager generation provider prior to your ED visit? Not applicable 5. Is there anything else I can do for you today? Not applicable Called left message on patients voicemail to call us if she needs anything or would like to make a follow up apt. Karishma Powell MA [facility] 06-08-2021 Note Patient Outreach (AG FAMPLE) CATALINA SIDDIQI ([id number]) 1940 F Date Time Provider Department 06/08/21 KARISHMA POWELL During your visit today, we recorded the following information about you: Karishma Powell MA 06/08/2021 1:32 PM Signed ED Follow Up: Patient discharged from [facility] ED on 06/03/2021. 1. How are you feeling since your ED visit? na Have your symptoms improved or resolved? Not applicable 2. Were you prescribed any medications while in the ED or advised to stop any medication? Not applicable - If yes, were you able to fill your prescriptions? Not applicable -if stopped medication, what was the medication? na 3. Were you advised to schedule a follow up appointment with your provider? Not applicable - If no, Do you feel like you need an appointment scheduled? Not applicable - If yes, Do you need this scheduled now or has this already been scheduled? Not applicable 4. Were you able to contact the office or manager generation provider prior to your ED visit? Not applicable 5. Is there anything else I can do for you today? Not applicable Called left message on patients voicemail to call us if she needs anything or would like to make a follow up apt. Karishma Powell MA Allergies As of Date: 06/08/2021 (No Known Allergies) Date Reviewed: 06/03/2021 Reviewed by: Vane Vinson RN - Fully Assessed Reason for Visit: ED outreach [Other] Cmt: ed outreach Prescriptions as of 06/08/2021 - antiox #8/om3/dha/epa/lut/zeax (PRESERVISION AREDS 2, OMEGA-3, ORAL) Take by mouth. - levothyroxine (SYNTHROID) 50 mcg tablet Take 1 tablet by mouth once daily. - tamoxifen (NOLVADEX) 20 mg tablet Take 20 mg by mouth once daily. - acetaminophen (TYLENOL) 500 mg tablet Take 1,000 mg by mouth every 8 hours as needed for Pain. - docusate sodium (COLACE) 100 mg capsule Take 100 mg by mouth once daily. - aspirin 81 mg chewable tablet Take 81 mg by mouth once daily. - Cholecalciferol, Vitamin D3, (VITAMIN D) 1,000 unit cap Take 1,000 Units by mouth once daily. Problem List As Of Date 06/08/2021 Noted Resolved Pain in right knee [M25.561] 05/14/2017 Difficulty walking up stairs [R26.2] 05/14/2017 Difficulty walking down stairs [R26.2] 05/14/2017 Muscle weakness of lower extremity [M62.81] 05/14/2017 Primary osteoarthritis of right knee [M17.11] 05/14/2017 Obesity, Class I, BMI 30-34.9 [E66.9] 12/31/2017 S/P total knee arthroplasty, right [Z96.651] 12/23/2018 Knee stiffness, right [M25.661] 12/23/2018 Walking difficulty due to knee joint disorder [*12/23/2018 Encounter Status:Closed by KARISHMA POWELL on 06/08/21 [facility] Diagnosis Posture abnormality- Primary Abnormal posture [facility] Diagnosis Abnormality of gait- Primary Abnormal posture Acute left-sided low back pain, unspecified whether sciatica present Degeneration of lumbar intervertebral disc Degeneration of lumbar or lumbosacral intervertebral disc documented [facility] this [facility]* Diagnosis Acute left-sided low back pain, unspecified whether sciatica present- Primary Abnormality of gait Abnormal posture Degeneration of lumbar intervertebral disc Degeneration of lumbar or lumbosacral intervertebral disc [facility] Diagnosis Abnormality of gait- Primary Abnormal posture Acute left-sided low back pain, unspecified whether sciatica present Degeneration of lumbar intervertebral disc Degeneration of lumbar or lumbosacral intervertebral disc documented in this encounter [facility] Summary Purpose Family History No Family History Records FoundNo Family History Records FoundNo Family History Records FoundNo Family History Records Found Advance Directives No Advanced Directives Records FoundDocuments on File Type Date Recorded Patient Tie Presser Expl anation Advance Directive(s) 06/03/2021 10:22 AM Additional Source Comments INFORMATION SOURCE (unrecogn ized section and content) DATE CREATED AUTHOR AUTHOR'S ORGANIZ ATION 08/22/2021 [facility] DATE CREATED AUTHOR AUTHOR'S ORGANIZ ATION 10/31/2021 [facility] DATE CREATED AUTHOR AUTHOR'S ORGANIZ ATION 10/25/2022 [facility] Source Comments (unrecognize d section and content) In the event this informatio n is protected by the Federal Confidentiality of Alcohol and Drug Abuse Patient Records regulations: The Federal rules restrict any use of the information to criminally investigate or prosecute any alcohol or drug abuse patient.[facility] the event this information is protected by the Federal Confidentiality of Alcohol and Drug Abuse Patient Records regulations: The Federal rules restrict any use of the information to criminally investigate or prosecute any alcohol or drug abuse patient.[facility] the event this information is protected by the Federal Confidentiality of Alcohol and Drug Abuse Patient Records regulations: The Federal rules restrict any use of the information to criminally investigate or prosecute any alcohol or drug abuse patient.[facility] the event this information is protected by the Federal Confidentiality of Alcohol and Drug Abuse Patient Records regulations: The Federal rules restrict any use of the information to criminally investigate or prosecute any alcohol or drug abuse patient.[facility] the event this information is protected by the Federal Confidentiality of Alcohol and Drug Abuse Patient Records regulations: The Federal rules restrict any use of the information to criminally investigate or prosecute any alcohol or drug abuse patient.[facility] the event this information is protected by the Federal Confidentiality of Alcohol and Drug Abuse Patient Records regulations: The Federal rules restrict any use of the information to criminally investigate or prosecute any alcohol or drug abuse patient.[facility] Reason for Visit (unrecogniz ed section and content) Specialty Diagnoses / Procedures Referred By Kimi t Referred To Contact Physical Therapy / PHYSICAL THERAPY Diagnoses lumbar Procedures NEW RS PT ORTH MSK BorrusoOlvin Jr., DO [address] [place] [address] Velma Rodriguez, PT [address] [place] [address] Referral ID Status Reason Start Date Expiration Date V isits Requested Visits Authorized [id number] Authorized 09/27/2022 08/10/2023 99 99 Reason Comments Physical Therapy Reason Comments PT Eval Reason Comments Depression Grieving loss of spo use Reason Comments Opened In Error Care Teams (unrecognized sec tion and content) [employer] Manager Relationship Specialty Start Date End Date Sissy Felix MD PCP - General Internal Medicine 11/10/17 [employer] Manager Relationship Specialty Start Date End Date Sissy Felix MD PCP - General Internal Medicine 11/10/17 [employer] Manager Relationship Specialty Start Date End Date Sissy Felix MD PCP - General Internal Medicine 11/10/17 [employer] Manager Relationship Specialty Start Date End Date Sissy Felix MD PCP - General Internal Medicine 11/10/17 FOR RECORDS PERTAINING TO PATIENTS WHO ARE OR HAVE BEEN ENROLLED IN A CHEMICAL DEPENDENCY/SUBSTANCEABUSE PROGRAM, SOME INFORMATION MAY BE OMITTED. This clinical summary was aggregated from multiple sources. Caution should be exercised in using it in the provision of clinical care. This summary normalizes information from multiple sources, and as a consequence, information in this document may materially change the coding, format and clinical context of patient data. In addition, data may be omitted in some cases. CLINICAL DECISIONS SHOULD BE BASED ON THE PRIMARY CLINICAL RECORDS. [email or web address] provides no warranty or guarantee of the accuracy or completeness of information in this document.
== END | disposition home or self-care (01) ==
LOC: BIMLAB 13:32
PROVIDERS: PCP Internal Medicine; Visit Provider Internal Medicine
DX: M81.0 Age-related osteoporosis without current pathological fracture (principal); E83.52 Hypercalcemia
CPT/HCPCS: 36415; 82306; 83970

== ENCOUNTER → 2023-11-20 | Outpatient (CLI) | payer MEDICARE, SELFPAY ==
[2023-02-26 15:34] VITALS: BMI 34.1
--- NOTE | 2023-11-20 11:48 | US_ITS ---
INDICATION: Chronic kidney disease, stage 3b EXAMINATION: Ultrasound US Kidney(s) complete (eg, kidneys and bladder) TECHNIQUE: Engle scale and color doppler images were obtained of the kidneys. COMPARISON: FINDINGS: RIGHT KIDNEY: 9.5 x 4.1 x 4.0 cm. The cortex is 7 mm. There is mild hydronephrosis. No shadowing calculus, focal lesion or perinephric collection is demonstrated. LEFT KIDNEY: 9.3 x 3.6 x 4.4 cm. The cortex is 7 mm. There is no hydronephrosis. No shadowing calculus, focal lesion or perinephric collection is demonstrated. URINARY BLADDER: There is a volume of 109 cc. US/Kidney and Bladder IMPRESSION: Mild atrophic kidneys with cortical thinning. Mild right hydronephrosis. Electronically Signed: Eddie Shaw DO at 23:01 EDT Reading Location ID and State: [facility] / [place] Tel [phone], Service support ,
[2023-11-20 12:59] LABS: Color, Urine Yellow (Yellow); Glucose, Dipstick Normal (Normal); Ketone-Dipstick Negative (Negative); Leukocyte Esterase-Dipstick 500 /ul (Negative); Mean Corp Hgb Conc 31.7 g/dL (32-36); Mean Corpuscular Hgb 30.4 pg (27.0-32.0); Mean Platelet Vol. 10.2 fl (6.2-12.0); Nitrite-Dipstick Negative (Negative); Occult Blood-Urine 10 /ul (Negative); Platelet Count 240 K/mm3 (150-450); Protein-Dipstick Negative (Negative); RBC Distribution Width CV 14.8 % (11.6-14.6); RBC Distribution Width SD 52.2 fl (35.1-43.9); Red Blood Count 4.27 M/mm3 (4.2-5.4); Urine Bilirubin Dipstick Negative (Negative); Urine Clarity Sl. Cloudy (Clear); Urine Urobilinogen Normal (Normal); White Blood Count 7.9 K/mm3 (4.4-11.0)
[2023-11-20 13:11] LABS: Protein, Urine (Random) 11.7 mg/dL (<11.9); Protein:Creat Ratio 387 mg/g CRE (0-200)
[2023-11-20 13:22] LABS: Albumin, Serum 3.8 g/dL (3.2-5.0); BUN 31 mg/dL (7-18); BUN/Creat Ratio 21.8 RATIO (10-20); Calcium,Total 10.4 mg/dL (8.5-10.1); Chloride 106 mmol/L (98-107); Creatinine, Serum 1.42 mg/dL (0.55-1.02); EST Glomerular Filtration Rate 38 mL/min (>60); Est Glom Filt Rate - Afr Amer 46 mL/min (>60); Glucose 93 mg/dL (74-106); Phosphorus 2.2 mg/dL (2.5-4.9); Potassium 4.1 mmol/L (3.5-5.1); Sodium Level 136 mmol/L (136-145)
[2023-11-20 13:23] LABS: PTHIN 249.7 pg/mL (18.4-80.1)
[2023-11-20 13:26] LABS: Vitamin D,25 Hydroxy 55.9 ng/mL
== END | disposition home or self-care (01) ==
PROVIDERS: PCP Internal Medicine; Referring Provider Internal Medicine Nephrology; Visit Provider Internal Medicine Nephrology
DX: N18.32 Chronic kidney disease, stage 3b (principal); E20.9 Hypoparathyroidism, unspecified
CPT/HCPCS: 36415; 76770; 80069; 81002; 82306; 82570; 83970; 84156; 85027

== ENCOUNTER → 2023-12-30 | Outpatient (CLI) | payer MEDICARE, SELFPAY ==
[2023-02-26 15:34] VITALS: BMI 34.1
[2023-12-30 16:25] LABS: T3 Total - Triiodothyronine 0.97 ng/mL (0.6-1.81); Vitamin B12 280 pg/mL (211-911)
[2023-12-30 16:38] LABS: Thyroid Stim Hormone (TSH) 1.97 uIU/mL (0.358-3.74)
== END | disposition home or self-care (01) ==
LOC: BIMLAB 12:20
PROVIDERS: PCP Internal Medicine; Visit Provider Internal Medicine
DX: E03.9 Hypothyroidism, unspecified (principal); N18.9 Chronic kidney disease, unspecified
CPT/HCPCS: 36415; 82607; 84439; 84443; 84480

== ENCOUNTER → 2024-01-26 | Outpatient (CLI) | payer MEDICARE, SELFPAY ==
[2023-02-26 15:34] VITALS: BMI 34.1
--- NOTE | 2024-01-26 12:36 | BI_ITS ---
MAMMOGRAPHY - BILATERAL SCREENING REASON FOR EXAM: Female, 84 years old. Routine annual screening examination. PERTINENT HISTORY: Personal history of breast cancer. Prior right lumpectomy with radiation treatment. TECHNIQUE: Digital bilateral breast maryjane (3D mammographic acquisition) in the CC and MLO projections. 2-D mediolateral oblique (MLO) and craniocaudad (CC) views of both breasts were obtained. CAD: Full Field Digital Mammography with Computer Added Detection was performed. COMPARISON: Comparison is made with prior study dated January 20, 2023 and January 17, 2022. FINDINGS: Breast Composition: The breasts are heterogeneously dense, which may obscure small masses. There is a 1.2 cm x 0.9 cm nodular density in the deep central slightly lateral aspect of the left breast. Correlation with ultrasound is recommended. The patient is status post lumpectomy in the inferior aspect of the right breast. Postoperative scarring and skin thickening is seen at the operative site. No other significant abnormalities are identified. BI/SCRN MAMM (CAD)W/MARYJANE BILAT IMPRESSION: I suspect a 1.2 cm x 0.9 cm nodular density in the deep central slightly lateral aspect of the left breast. Correlation with ultrasound recommended. ASSESSMENT CATEGORY: BIRADS Category 0: Incomplete. Need additional imaging evaluation. A letter regarding these results will be sent to the patient by the facility within 30 days. Approximately 10% of breast cancers are not detected by mammography. A normal mammogram should not delay biopsy of a clinically suspicious abnormality. [id number] Electronically Signed: Dionicio Haddad MD at 14:32 EDT ,
== END | disposition home or self-care (01) ==
LOC: OPBI 12:36
PROVIDERS: PCP Internal Medicine; Referring Provider Student in an Organized Health Care Education/Training Program; Visit Provider Student in an Organized Health Care Education/Training Program
DX: Z12.31 Encounter for screening mammogram for malignant neoplasm of breast (principal)
CPT/HCPCS: 77063; 77067

== ENCOUNTER → 2024-01-28 | Outpatient (CLI) | payer MEDICARE, SELFPAY ==
[2023-02-26 15:34] VITALS: BMI 34.1
--- NOTE | 2024-01-28 09:41 | US_ITS ---
STUDY: ULTRASOUND BREAST - LEFT REASON FOR EXAM: Female, 84 years old. Abnormal screening mammogram. TECHNIQUE: Axial and longitudinal images of the LEFT breast were performed with a high resolution ultrasound transducer. # OF IMAGES: 37 COMPARISON: Comparison is made with prior mammogram dated January 26, 2024. FINDINGS: LEFT Breast: The upper half of the breast was examined with ultrasound. There is dense fibroglandular tissue. No sonographic abnormality is seen. US/Breast Limited Unilateral IMPRESSION: No sonographic abnormality is seen. ASSESSMENT CATEGORY: BIRADS Category 1: Negative. A letter regarding these results will be sent to the patient by the facility within 30 days. Electronically Signed: Dionicio Haddad MD at 15:23 EDT ,
== END | disposition home or self-care (01) ==
PROVIDERS: PCP Internal Medicine; Referring Provider Student in an Organized Health Care Education/Training Program; Visit Provider Student in an Organized Health Care Education/Training Program
DX: Z12.31 Encounter for screening mammogram for malignant neoplasm of breast (principal); C50.911 Malignant neoplasm of unspecified site of right female breast
CPT/HCPCS: 76642

== ENCOUNTER → 2024-07-15 | Outpatient (CLI) | payer MEDICARE, SELFPAY ==
[2023-02-26 15:34] VITALS: BMI 34.1
--- NOTE | 2024-07-15 12:27 | US_ITS ---
STUDY: RENAL ULTRASOUND - COMPLETE REASON FOR EXAM: Female, 84 years old. Unspecified hydronephrosis, with post void TECHNIQUE: Ultrasound evaluation of the kidneys was performed with real-time and static armendariz-scale imaging. COMPARISON: Renal ultrasound dated November 20, 2023 FINDINGS: RIGHT KIDNEY: Interval increase in echogenicity of the renal parenchyma consistent with nonspecified medical renal disease. Normal location of the right kidney, which is normal in size. The right kidney measures 8.9 x 4.1 x 4 point cm. There is diffuse thinning of the renal cortex. The renal cortex measures 0 cm. There is no right renal mass or cyst. There are no right renal calculi. There is mild hydronephrosis of the right kidney, although improved from the prior study. DISTAL RIGHT URETER: There is non-visualization of the distal right ureter. There is no demonstrated right ureterovesical junction calculus. There is a visualized right ureteral jet. LEFT KIDNEY: Interval increase in echogenicity of the renal parenchyma consistent with nonspecified medical renal disease. Normal location of the left kidney, which is normal in size. The left kidney measures 9.2 x 4.2 x 4.2 cm. There is diffuse thinning of the renal cortex. The renal cortex measures 0.7 cm. There is no left renal mass or cyst. There are no left renal calculi. There is no left hydronephrosis. DISTAL LEFT URETER: There is non-visualization of the distal left ureter. There is no demonstrated left ureterovesical junction calculus. There is a visualized left ureteral jet. BLADDER: The distended urinary bladder has a volume of 26.4 ml. The empty urinary bladder has a volume of 5.5 ml. There is a normal wall thickness of the distended urinary bladder. There is no demonstrated mass within the urinary bladder. There are no demonstrated bladder calculi. US/Kidney and Bladder IMPRESSION: 1. Interval increase in echogenicity of the renal parenchyma consistent with nonspecified medical renal disease. 2. Hydronephrosis, although improved/decreased from the prior study. Electronically Signed: Siva Kim MD at 9:15 EST ,
== END | disposition home or self-care (01) ==
LOC: US 12:26
PROVIDERS: PCP Internal Medicine; Referring Provider Internal Medicine Nephrology; Visit Provider Internal Medicine Nephrology
DX: N18.32 Chronic kidney disease, stage 3b (principal); N13.30 Unspecified hydronephrosis
CPT/HCPCS: 76770

== ENCOUNTER → 2024-08-12 | Outpatient (CLI) | payer MEDICARE, SELFPAY ==
[2023-02-26 15:34] VITALS: BMI 34.1
[2024-08-12 12:53] LABS: Hematocrit 43.4 % (37-47); Hemoglobin 13.7 g/dL (12.0-15.0); Mean Corp Hgb Conc 31.6 g/dL (32-36); Mean Corpuscular Hgb 30.1 pg (27.0-32.0); Mean Corpuscular Volume 95.4 fL (81-99); Mean Platelet Vol. 9.9 fl (6.2-12.0); Platelet Count 291 K/mm3 (150-450); RBC Distribution Width CV 14.5 % (11.6-14.6); RBC Distribution Width SD 50.7 fl (35.1-43.9); Red Blood Count 4.55 M/mm3 (4.2-5.4)
[2024-08-12 13:20] LABS: Albumin, Serum 3.5 g/dL (3.2-5.0); BUN 34 mg/dL (7-18); BUN/Creat Ratio 22.4 RATIO (10-20); Calcium,Total 10.4 mg/dL (8.5-10.1); Chloride 107 mmol/L (98-107); Creatinine, Serum 1.52 mg/dL (0.55-1.02); EST Glomerular Filtration Rate 35 mL/min (>60); Est Glom Filt Rate - Afr Amer 42 mL/min (>60); Glucose 108 mg/dL (74-106); Phosphorus 2.2 mg/dL (2.5-4.9); Potassium 4.3 mmol/L (3.5-5.1); Sodium Level 139 mmol/L (136-145)
[2024-08-12 14:32] LABS: PTHIN 401.1 pg/mL (18.4-80.1)
[2024-08-12 14:40] LABS: Vitamin D,25 Hydroxy 29.2 ng/mL
== END | disposition home or self-care (01) ==
LOC: PAVLAB 12:18
PROVIDERS: PCP Internal Medicine; Referring Provider Internal Medicine Nephrology; Visit Provider Internal Medicine Nephrology
DX: N18.32 Chronic kidney disease, stage 3b (principal); E20.9 Hypoparathyroidism, unspecified
CPT/HCPCS: 36415; 80069; 82306; 83970; 85027

== ENCOUNTER → 2024-08-17 | Outpatient (CLI) | payer MEDICARE, SELFPAY ==
[2023-02-26 15:34] VITALS: BMI 34.1
[2024-08-17 15:47] LABS: Protein:Creat Ratio 516 mg/g CRE (0-200)
== END | disposition home or self-care (01) ==
LOC: LABSPEC 13:36
PROVIDERS: PCP Internal Medicine; Referring Provider Internal Medicine Nephrology; Visit Provider Internal Medicine Nephrology
DX: E20.9 Hypoparathyroidism, unspecified (principal); N18.32 Chronic kidney disease, stage 3b
CPT/HCPCS: 82570; 84156

== ENCOUNTER → 2025-01-27 | Outpatient (CLI) | payer MEDICARE, SELFPAY ==
[2023-02-26 15:34] VITALS: BMI 34.1
--- NOTE | 2025-01-27 10:00 | BD_ITS ---
PROCEDURE: DEXA BONE DENSITY STUDY 01/27/2025 REASON FOR EXAM: FOLLOWUP F, age 85 y/o . Postmenopausal. TECHNIQUE: DEXA BONE DENSITY STUDY COMPARISON: January 31, 2022. FINDINGS: BMD and T-SCORES Lumbar spine: 1.030 g/cm2, T-score -0.3 Levels: L1 through L4 Change from prior: Loss of 0.5%. Left femoral neck: 0.606 g/cm2, T-score -2.2 Femoral neck comparison data not recommended for monitoring change. Left total hip: 0.762 g/cm2, T-score -1.5 Change from prior: Loss of 3.6%. Right femoral neck: 0.652 g/cm2, T-score -1.8 Femoral neck comparison data not recommended for monitoring change. Right total hip: 0.800 g/cm2, T-score -1.2 Change from prior: Loss of 3.4%. The World Health Organization has defined the following categories based on bone density: Normal bone density: T-score equal to or greater than -1.0 Osteopenia: T-score between -1.0 and -2.5 Osteoporosis: T-score equal to or less than -2.5 The patient does meet the pharmacological treatment recommendations for prevention of osteoporosis. BD/Dexa Bone Density Study IMPRESSION: OSTEOPENIA. Recommend follow-up as clinically warranted. Reading Location: [place] [id number]
--- NOTE | 2025-01-27 10:45 | BI_ITS ---
EXAM: SCRN MAMM (CAD)W/MARYJANE BILAT DATE: 01/27/2025 CLINICAL HISTORY: F, Age 85 y/o , SCREENING Personal history of breast cancer. History of prior right lumpectomy and right stereotactic breast biopsy. BREAST CANCER RISK ASSESSMENT: Not assessed. TECHNIQUE: Bilateral screening digital breast tomosynthesis with 2D and 3D images. Computer aided detection. COMPARISON: Prior exam(s) dated January 26, 2024.. FINDINGS: TISSUE DENSITY: The breast tissue is heterogeneously dense, which may obscure small masses. Bilateral Breast Mammographic Findings: No significant masses, calcifications or other abnormalities are identified. The patient is status post lumpectomy with resultant postoperative scarring and deformity of the inferior aspect of the right breast. No suspicious masses, areas of developing architectural distortion, or suspicious calcifications. There has been no significant interval change. BI/SCRN MAMM (CAD)W/MARYJANE BILAT IMPRESSION: Stable examination. OVERALL FINAL ASSESSMENT BI-RADS 2: BENIGN RECOMMEND ANNUAL MAMMOGRAPHIC SCREENING. RECOMMENDATION: Routine annual follow-up in 1 Year A letter with findings and recommendations will be mailed to the patient. Reading Location: [place] [address]
== END | disposition home or self-care (01) ==
LOC: OPBI 10:02
PROVIDERS: PCP Internal Medicine; Referring Provider Internal Medicine Medical Oncology; Visit Provider Internal Medicine Medical Oncology
DX: Z12.31 Encounter for screening mammogram for malignant neoplasm of breast (principal); M85.80 Other specified disorders of bone density and structure, unspecified site; Z78.0 Asymptomatic menopausal state; Z85.3 Personal history of malignant neoplasm of breast
CPT/HCPCS: 77063; 77067; 77080

== ENCOUNTER → 2025-07-22 | Outpatient (CLI) | payer MEDICARE, SELFPAY ==
[2023-02-26 15:34] VITALS: BMI 34.1
== END | disposition home or self-care (01) ==
LOC: LABSPEC 11:57
PROVIDERS: PCP Internal Medicine; Referring Provider Internal Medicine Medical Oncology; Visit Provider Internal Medicine Medical Oncology
DX: R97.8 Other abnormal tumor markers (principal)
CPT/HCPCS: 82274